=== PATIENT | female | born 1980 | race Caucasian/White ===

== ENCOUNTER 2019-05-28 20:29 | Observation (INO) | payer MEDICAID, SELFPAY ==
[2019-05-28] VITALS (15 sets, daily range): BP systolic 138–174; BP diastolic 96–119; PULSE 94–124; RESP 15–18; TEMP 36.7–37.2; O2SAT 95–99
--- NOTE | 2019-05-28 20:43 | W.ED.GENAD ---
Discharge Plan Disposition Patient Disposition: [facility] INPATIENT Condition: Improving Discharge Details Chief Complaint: ThroatFB Clinical Impression: Esophageal foreign body Attending Provider: Nicky Garcia Primary Care Provider: Guevara Wiley ED Provider: Vinod Valdivia Medical Decision Making 39-year-old female with frequent heartburn by subjective history, previous episodes of feeling meat gets stuck, no presentations to the hospital for same. Now feels prime rib got stuck this evening at her son's birthday green party. Unable to swallow her secretions. No chest pain or shortness of breath. She has otherwise been well. States that she needs to reestablish primary care. Consistent with meat impaction and patient trialed with effervescent bubbles, this was unsuccessful with persistent drooling and no antegrade passage of secretions. Discussed with Dr. Garcia and patient to be taken to OR. HPI General Mode of arrival: ambulatory. Date/Time Provider Initiated Documentation: 05/28/19 20:30. Limitations to Documentation: no limitations. Information obtained by: patient. History of Present Illness 39 year old F presents to the emergency department with the chief complaint of Foreign body in throat, described as moderate, Quality is described as dull and constant, and is localized to the mouth. Patient reports no radiation. Patient started experiencing this hour(s) and it has been constant. No relieving factors improve symptom(s), No exacerbating factors reported . Patient did receive the following treatments prior to arrival, none Related Data Home Medications Medication Instructions Recorded Confirmed levalbuterol tartrate [Xopenex HFA] 15 gm INHALATION PRN PRN 10/11/12 05/28/19 esomeprazole magnesium [Nexium 40 mg PO DAILY #30 each 05/28/19 Packet] mometasone-formoterol [Dulera] 2 puff IH Q12H #13 gm 05/28/19 Previous Rx's Medication Instructions Recorded esomeprazole magnesium [Nexium 40 mg PO DAILY #30 each 05/28/19 Packet] mometasone-formoterol [Dulera] 2 puff IH Q12H #13 gm 05/28/19 Allergies Allergy/AdvReac Type Severity Reaction Status Date / Time No Known Allergies Allergy Unverified 05/28/19 20:37 General Stated Complaint: ThroatFB SAAD: 3 Review of Systems Narrative: 6 systems reviewed and otherwise negative [facility] Medical History (Updated 05/28/19 @ 22:18 by Nicky Garcia DO) Churg-Janna syndrome with lung involvement (Acute) Esophageal foreign body (Acute) GERD (gastroesophageal reflux disease) (Chronic) Social History Smoking/Tobacco Use Status: Never Alcohol Intake: current Drug use: Never Substance use type: does not use Do you feel safe at home: Yes Do you feel safe in your relationship?: Yes Exam Narrative Exam Narrative: GEN: awake, alert, oriented 3. Pleasant, well groomed, interactive. HEAD: Normocephalic, atraumatic ENT: Mucous membranes moist, oropharynx unremarkable, External ear exam unremarkable EYES: PERRL, EOMI NECK: Full ROM, no KOLBY, no menigismus CHEST/RESP: Nontender, clear to auscultation bilateral, no wheeze/rhonchi/rales CARDIOVASCULAR: RRR, no murmur, rub mayda. 2+ Rad pulse bilateral ABDOMEN: Soft, nontender, no mass. +Bowel sounds EXT: Full ROM, no edema, no rash Neuro: Grossly normal neurologic exam, conversant, interactive. Psych: Speech fluent, thoughts congruent, affect normal Course Vital Signs Vital signs: Vital Signs Temperature 36.7 C 05/28/19 20:33 Pulse 105 H 05/28/19 20:33 Respiratory Rate 16 05/28/19 20:33 Blood Pressure 164/114 H 05/28/19 20:33 Pulse Oximetry 96 05/28/19 20:33 Temperature 36.7 C 05/28/19 20:33 Temperature Source Skin 05/28/19 20:33 Pulse 105 H 05/28/19 20:33 Respiratory Rate 16 05/28/19 20:33 Respiratory Effort Non-Labored 05/28/19 20:40 Respiratory Pattern Normal 05/28/19 20:40 Blood Pressure 164/114 H 05/28/19 20:33 Pulse Oximetry 96 05/28/19 20:33 Pain Level 1 05/28/19 20:33
[2019-05-28] MEDS: Simethicone/Sod Bicarb/Cit Ac, 4 gram PACKET 1 PACKET PO (20:49)
--- NOTE | 2019-05-28 20:57 | W.PM.HP.N ---
Date of service: 05/28/19 Time of Service: 20:57 Assessment and Plan Assessment and plan (1) Esophageal foreign body: Status: Acute Assessment and plan: Informed consent is obtained for the procedural (explained in simple layman's terms that the pt and/or family could understand) explaining risks vs benefits and alternatives to the procedure and consequences if we do not do the procedure and need/rational for the procedure. Risks include but are not limited to: bleeding, infection, perforation of esophagus, stomach, colon, small intestines, bronchus or trachea, or PTX. This would necessitate emergency surgery to repair the damage w/ possible ostomy; and other associated complications w/ the required surgery. Also complications of anesthesia including aspiration, LA/CVA/. egd and foreign body removal consider gerd meds in future needs to f/u w/ pcp regarding resp issues. History of Present Illness Consults Consult date: 05/28/19 Narrative: Prime rib stuck in throat. cannot swallow her own secretions. Has of hx of GERD. not on medications for it. often feels like food is sticking, but has never had anything stuck yet. no prior head/neck sx. no airway distress. Hx of asthma problems- churg janna. has not has her meds for 6m. she has been on prednisone in the past- none for last 6m. Review of Systems All systems reviewed & are unremarkable except as noted in HPI and below PFSH Medical History (Updated 05/28/19 @ 20:59 by Nicky Garcia DO) Churg-Janna syndrome with lung involvement (Acute) Esophageal foreign body (Acute) Social History Smoking/Tobacco Use Status: Never Alcohol Intake: current Drug use: Never Substance use type: does not use Do you feel safe at home: Yes Do you feel safe in your relationship?: Yes Meds Home Medications and Allergies Home Medications Medication Instructions Recorded Confirmed Type levalbuterol tartrate [Xopenex Hfa] 15 gm INHALATION PRN PRN 10/11/12 05/28/19 History Allergies Allergy/AdvReac Type Severity Reaction Status Date / Time No Known Allergies Allergy Unverified 05/28/19 20:37 Exam Const General: cooperative, healthy appearing, comfortable, no acute distress, well developed and well groomed Nutritional Appearance: average body habitus and well nourished Orientation: alert, awake and oriented x3 [facility] Head: normal to inspection, normocephalic and atraumatic Ears: hearing grossly normal bilaterally and external ears normal General nose exam: external nose normal Face and sinus: normal facial exam and sinuses nontender Mouth: oral mucosae normal, lip normal, tongue normal and moist mucous membranes Teeth and gingiva: dentition normal Other: dentition- some chipped teeth. cannot swallow her own secretions. Eyes General: appearance normal, both eyes and all related structures Conjunctivae: conjunctivae normal Sclera: sclerae normal Pupils: PERRL Neck Neck: normal visual inspection and full ROM Chest Chest: normal inspection of the chest Resp Effort & Inspection: normal respiratory effort, able to speak in complete sentences, no cough, no nasal flaring, not tachypneic and no use of accessory muscles Auscultation: clear to auscultation bilaterally, no rales, no rhonchi and no wheezes Cardio Jugular venous pressure: no JVD Rate: regular rate Rhythm: regular rhythm GI Inspection: normal to inspection, no edema and non-distended Palpation: soft, no masses, nontender and No ascites Auscultation: normal bowel sounds Skin General skin exam: no rashes or lesions noted Trauma: no lacerations or abrasions Neuro General: alert, oriented x3, oriented, gait normal, moves all extremities, no focal motor deficits and CN's II-XI intact bilaterally Cognition: normal cognition Speech: speech normal Gait: normal gait Motor: muscle tone normal throughout Extrem General: normal to inspection, full ROM and no clubbing, cyanosis or edema Psych Appearance: grossly normal and well kempt Mental Status: mental status grossly normal Speech and Movement: speech and movement normal Affect: normal affect Results Last Vital Signs Temp 36.7 C 05/28/19 20:33 Pulse 105 H 05/28/19 20:33 Resp 16 05/28/19 20:33 BP 164/114 H 05/28/19 20:33 Pulse Ox 96 05/28/19 20:33
[2019-05-28] MEDS: Normal Saline Flush 10 ML SYR IVP ×2 (20:58→23:08)
[2019-05-28] MEDS: Lactated Ringers 1,000 ML 80 ML IV (22:07)
--- NOTE | 2019-05-28 22:11 | STOM_PTH ---
PATIENT: Aleyda Madera LOC: U#:[id number] AGE/SX: 39/F ROOM: 227 RE05/28/[address]: Nicky Garcia : 1980 BED: A DIS: 05/28/2019 SPEC #: [id number] RECD: 05/30/19 12:25 STATUS: VANNA REQ #: [id number] JCARLOS: 05/28/19 22:[address]: Nicky Garcia DEPT: Surgical Specimen RECD BY: Susu Aguayo ENTERED: 05/30/19 12:26 SP TYPE: STOMACH OTHR DR: Guevara Wiley Tissues: 1 - STOMACH BIOPSY 2 - ESOPHAGUS BIOPSY Procedures: GROSS AND MICRO LEVEL 4 Comments: [id number]
--- NOTE | 2019-05-28 22:17 | W.PM.DS.N ---
Date of service: 05/28/19 Time of Service: 22:17 DS: Diagnosis Discharge Diagnosis (1) Esophageal foreign body: Status: Acute (2) GERD (gastroesophageal reflux disease): Status: Chronic (3) Churg-Janna syndrome with lung involvement: Status: Acute Discharge Plan Disposition Patient Disposition: HOME Condition: Improving Discharge Details Chief Complaint: ThroatFB Reason For Visit: esophageal foreign body Attending Provider: Nicky Garcia Primary Care Provider: Guevara Wiley ED Provider: Vinod Valdivia Home Meds and New Rx's Prescriptions: New Nexium Packet [address] for susp in packet 40 mg PO DAILY Qty: 30 RF: 1 Dulera 100-5 mcg/actuation HFA aerosol inhaler 2 puff IH Q12H Qty: 13 RF: 1 Continued levalbuterol tartrate [Xopenex HFA] 1 PUFF HFA aerosol inhaler 15 gm Inhalation PRN PRN (Reason: Wheezing, Shortness Of Breath) RF: 0 Discharge Instructions Instructions: Gastroesophageal Reflux Disease (GEN), Diet for Stomach Ulcers and Gastritis (GEN) Additional Instructions: -liquid diet for 24 hrs -may have sore throat- use cepacol lozenges as needed -F/u w/ PCP!!!!! -you do have GERD- start on Nexium- Rx given. -Continue with lifestyle modifications: no alcohol, tobacco products, Aspirin or NSAID's (ibuprofen, Motrin, Naprosyn, aleve, etc), soda pop/any carbonated beverages, caffeine (including tea & chocolate). Try to limit: and acidic foods, (tomatoes, citrus, onions, peppermints). Do not lie down for 30 minutes after eating, and do not eat 2 hours prior to bedtime. Avoid wearing tight fitting clothing/ belts Activity:: no stenuous acitivty or heavy lifting for 24 hrs Diet:: liquids for 24 hrs DS: Summary Status at Discharge Functional status at discharge: independent ambulation Overall status at discharge: patient is back to baseline Mental Status: mental status grossly normal Speech and Movement: speech and movement normal Mood: congruent mood Affect: normal affect Exam Psych Mental Status: mental status grossly normal Speech and Movement: speech and movement normal Mood: congruent mood Affect: normal affect DS: Data Vitals/I&O Vitals and I&O: Vital Signs Temperature 36.7 C 05/28/19 20:33 Temperature Source Skin 05/28/19 20:33 Pulse 105 H 05/28/19 21:31 Respiratory Rate 16 05/28/19 20:33 Respiratory Effort Non-Labored 05/28/19 20:40 Respiratory Pattern Normal 05/28/19 20:40 Blood Pressure 145/103 H 05/28/19 21:31 Blood Pressure Mean 112 05/28/19 21:31 Pulse Oximetry 98 05/28/19 21:40 Pain Level 0 05/28/19 21:56 Intake & Output 05/27/19 05/28/19 05/28/19 23:59 11:59 23:59 Intake Total Balance Weight 74 kg Intake: IV [facility] Medical History (Updated 05/28/19 @ 22:18 by Nicky Garcia DO) Churg-Janna syndrome with lung involvement (Acute) Esophageal foreign body (Acute) GERD (gastroesophageal reflux disease) (Chronic) Social History Smoking/Tobacco Use Status: Never Alcohol Intake: current Drug use: Never Substance use type: does not use Do you feel safe at home: Yes Do you feel safe in your relationship?: Yes
--- NOTE | 2019-05-28 22:26 | ROE_ITS ---
Date of service: 05/28/19 Time of Service: 22:26 Operative Note Operative Note DATE OF PROCEDURE: 05/28/19 PRE-OP DIAGNOSIS: esophageal foreign body POST-OP DIAGNOSIS: other (GERD ) PROCEDURE: EGD and esophageal foreign body removal. Bx SURGEON: Nicky Garcia ANESTHESIA: GETA ESTIMATED BLOOD LOSS: 1 PATHOLOGY: other Patient was transported to: floor Patient's condition: stable Procedure Description: After informed consent was obtained the patient was take to the procedure room and placed in a supine position. Monitors were applied and a time out was done. The patients name, date of , procedure type, allergies to medications and metal in their body was reviewed. A bite block was placed and GETA was administered per the department of anesthesia. once sedated and comfortable the gastroscope was advanced through the oropharynx which was grossly normal into the esophagus. 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 The tissues were very friable and erthymatous- the whole length of the esophagus. The food bolus was at the LES- and was easily passed into the stomach. There was also some irritation in the stomach. The scope was retracted back into the stomach and biopsies were done to rule out H. pylori. Bx was also taken of the distal esophagus. All specimens are retrieved and no bleeding is noted. Complete EGD was not done because the patient had a stomach full of food. What I could see of the mucosa did seem to be a low grade gastritis. The scope was removed and the patient was woken up and taken back to [facility] in stable condition. Follow up: needs to see PCP regarding chronic pulm issues- Churg-Janna. rx was given for protonix and her shannan MDI I will send a letter w/ Bx results. recommend lifestyle changes Continue with lifestyle modifications: no alcohol, tobacco products, Aspirin or NSAID's (ibuprofen, Motrin, Naprosyn, aleve, etc), soda pop/any carbonated beverages, caffeine (including tea & chocolate), and acidic foods, (tomatoes, citrus, onions, peppermints) spicy or fried/fatty foods. Do not lie down for 30 minutes after eating, and do not eat 2 hours prior to bedtime. Avoid wearing tight fitting clothing/ belts
[2019-05-28] MEDS: Pantoprazole 40 MG VIAL IVP (23:08)
== END 2019-05-28 23:47 | disposition home or self-care (01) ==
LOC: ER 20:34 → DSU 21:50 → MS 22:46
PROVIDERS: Admitting Provider Surgery; Emergency Provider Emergency Medicine; PCP Specialist/Technologist Athletic Trainer; Visit Provider Surgery
PROC: 0DC68ZZ Extirpation of Matter from Stomach, Via Natural or Artificial Opening Endoscopic (ICD-10-PCS; CPT 43247; principal; 2019-05-28 21:45)
DX: T18.128A Food in esophagus causing other injury, initial encounter (principal); K22.2 Esophageal obstruction; K20.0 Eosinophilic esophagitis; M30.1 Polyarteritis with lung involvement [Churg-Strauss]
CPT/HCPCS: 43247; 43239; 88305; 99222; 99238; 99285; 99284

== ENCOUNTER 2019-07-12 12:32 | Outpatient (REF) | payer MEDICAID, SELFPAY ==
[2019-07-12 21:19] LABS: Abs Immature Grans 0.03 k/cumm (0.0-0.09); Absolute Basophil Count 0.03 k/cumm (0.0-0.2); Absolute Eosinophil Count 0.75 k/cumm (0.0-0.7); Absolute Lymphocyte Count 2.08 k/cumm (1.2-3.4); Absolute Monocyte Count 0.83 k/cumm (0.11-0.7); Absolute Neutrophil Count 5.79 k/cumm (1.2-6.7); Basophils % 0.3; Eosinophils % 7.9; HCT 41.3 % (36.0-46.0); HGB 13.6 g/dL (12.0-15.5); Immature Grans % 0.3 %; Lymphocytes % 21.9; Mean Corp. HGB Concentration 32.9 g/dL (32.0-36.0); Mean Corpuscular Hemoglobin 31.4 pg (27.0-33.0); Mean Corpuscular Volume 95.4 fL (80-95); Mean Platelet Volume 9.6 fL (8.0-11.0); Monocytes % 8.7; Neutrophils % 60.9; Platelet Count 280 x1000/uL (130-400); RBC 4.33 m/cumm (4.00-5.20); RBC Distribution Width 12.8 % (11.7-14.6); White Blood Cell Count 9.51 k/cumm (4.4-10.8)
[2019-07-12 21:39] LABS: ALT 22 U/L (14-59); AST 16 U/L (15-37); Albumin 3.9 g/dL (3.4-5.0); Alkaline Phosphatase 82 U/L (46-116); BUN 7 mg/dL (7-18); Bilirubin, Total 0.4 mg/dL (0.2-1.0); CREATININE 0.79 mg/dL (0.55-1.02); Calcium 9.7 mg/dL (8.5-10.1); Calculated LDL 147 mg/dL; Chloride 105 mmol/L (98-107); Cholesterol 250 mg/dL (<200); Glucose 91 mg/dL (74-106); HDL Cholesterol 38 mg/dL (40-60); Potassium 4.2 mmol/L (3.5-5.1); Sodium 142 mmol/L (136-145); TSH (W/Ref FT4) 1.59 uIU/mL (0.36-3.74); Triglyceride 328 mg/dL (<150)
[2019-07-12 21:58] LABS: C-Reactive Protein 0.14 mg/dL (0.0-0.3)
[2019-07-12 22:05] LABS: ESR 9 mm/hr (0-20)
== END 2019-07-12 12:52 ==
LOC: NCHCN 12:32
PROVIDERS: PCP Specialist/Technologist Athletic Trainer; Visit Provider Specialist/Technologist Athletic Trainer
DX: I10 Essential (primary) hypertension (principal); M30.1 Polyarteritis with lung involvement [Churg-Strauss]; J45.20 Mild intermittent asthma, uncomplicated
CPT/HCPCS: 80053; 80061; 85652; 84443; 85025; 86140

== ENCOUNTER 2020-01-12 10:19 | Outpatient (REF) | payer MEDICAID, SELFPAY ==
[2020-01-12 21:07] LABS: Abs Immature Grans 0.02 k/cumm (0.0-0.09); Absolute Basophil Count 0.03 k/cumm (0.0-0.2); Absolute Eosinophil Count 0.41 k/cumm (0.0-0.7); Absolute Lymphocyte Count 1.16 k/cumm (1.2-3.4); Absolute Monocyte Count 0.64 k/cumm (0.11-0.7); Absolute Neutrophil Count 5.17 k/cumm (1.2-6.7); Basophils % 0.4; Eosinophils % 5.5; HCT 41.9 % (36.0-46.0); HGB 14.3 g/dL (12.0-15.5); Immature Grans % 0.3 %; Lymphocytes % 15.6; Mean Corp. HGB Concentration 34.1 g/dL (32.0-36.0); Mean Corpuscular Hemoglobin 32.7 pg (27.0-33.0); Mean Corpuscular Volume 95.9 fL (80-95); Mean Platelet Volume 9.5 fL (8.0-11.0); Monocytes % 8.6; Neutrophils % 69.6; Platelet Count 271 x1000/uL (130-400); RBC 4.37 m/cumm (4.00-5.20); RBC Distribution Width 12.7 % (11.7-14.6); White Blood Cell Count 7.43 k/cumm (4.4-10.8)
== END 2020-01-12 10:39 ==
LOC: NCHCN 10:19
PROVIDERS: PCP Specialist/Technologist Athletic Trainer; Visit Provider Nurse Practitioner Family
DX: I10 Essential (primary) hypertension (principal); M30.1 Polyarteritis with lung involvement [Churg-Strauss]; K20.0 Eosinophilic esophagitis; J32.9 Chronic sinusitis, unspecified; J45.20 Mild intermittent asthma, uncomplicated
CPT/HCPCS: 85025

== ENCOUNTER 2020-02-22 20:15 | Outpatient (REF) | payer MEDICAID, SELFPAY ==
[2020-02-22 20:26] LABS: Abs Immature Grans 0.03 10^3/uL (0.0-0.06); Absolute Basophil Count 0.06 10^3/uL (0.0-0.2); Absolute Eosinophil Count 0.29 10^3/uL (0.0-0.7); Absolute Lymphocyte Count 1.45 10^3/uL (1.2-3.4); Absolute Neutrophil Count 6.04 10^3/uL (1.2-6.7); Basophils % 0.7; Eosinophils % 3.4; HCT 40.4 % (36.0-46.0); HGB 13.7 g/dL (11.2-15.7); Immature Grans % 0.4; Lymphocytes % 16.9; MCH 32.1 pg (27.0-33.0); MCHC 33.9 % (32.0-36.0); MCV 94.6 fL (80-95); MPV 9.7 fL (8.0-11.0); Monocytes % 8.2; Neutrophils % 70.4; Nucleated RBC 0 %; Platelet Count 222 10^3/uL (130-400); RBC 4.27 10^6/uL (3.93-5.22); RDW 11.9 % (11.7-14.6); RDW-SD 41.3 fL; WBC 8.57 10^3/uL (4.4-10.8)
== END 2020-02-22 20:35 ==
LOC: NCHCN 20:15
PROVIDERS: PCP Specialist/Technologist Athletic Trainer; Visit Provider Nurse Practitioner Family
DX: M30.1 Polyarteritis with lung involvement [Churg-Strauss] (principal)
CPT/HCPCS: 85025

== ENCOUNTER 2020-07-17 11:33 | Outpatient (REF) | payer MEDICAID, SELFPAY ==
[2020-07-17 13:43] LABS: Abs Immature Grans 0.02 10^3/uL (0.0-0.06); Absolute Basophil Count 0.06 10^3/uL (0.0-0.2); Absolute Eosinophil Count 0.29 10^3/uL (0.0-0.7); Absolute Lymphocyte Count 1.52 10^3/uL (1.2-3.4); Absolute Monocyte Count 0.58 10^3/uL (0.1-0.8); Absolute Neutrophil Count 4.76 10^3/uL (1.2-6.7); Basophils % 0.8; HCT 40.5 % (36.0-46.0); HGB 13.6 g/dL (11.2-15.7); Immature Grans % 0.3; MCH 31.7 pg (27.0-33.0); MCHC 33.6 % (32.0-36.0); MCV 94.4 fL (80-95); MPV 8.9 fL (8.0-11.0); Neutrophils % 65.9; Nucleated RBC 0 %; Platelet Count 272 10^3/uL (130-400); RBC 4.29 10^6/uL (3.93-5.22); RDW 11.9 % (11.7-14.6); RDW-SD 41.3 fL; WBC 7.23 10^3/uL (4.4-10.8)
[2020-07-17 14:19] LABS: ALT 30 U/L (14-59); AST 25 U/L (15-37); Albumin 4.1 g/dL (3.4-5.0); Alkaline Phosphatase 64 U/L (46-116); Anion Gap 8.9 mmol/L (3-11); BUN 7 mg/dL (7-18); Bilirubin, Total 0.5 mg/dL (0.2-1.0); CO2 27.1 mmol/L (21.0-32.0); Calcium 8.8 mg/dL (8.5-10.1); Chloride 104 mmol/L (98-107); Glucose 85 mg/dL (74-106); Magnesium 1.8 mg/dL (1.8-2.4); Potassium 3.9 mmol/L (3.5-5.1); Sodium 140 mmol/L (136-145); Total Protein 7.2 g/dL (6.4-8.2); Vitamin B12 579 pg/mL (193-986)
== END 2020-07-17 11:53 ==
LOC: NCHCN 11:33
PROVIDERS: PCP Specialist/Technologist Athletic Trainer; Visit Provider Nurse Practitioner Family
DX: I10 Essential (primary) hypertension (principal); E78.5 Hyperlipidemia, unspecified; M30.1 Polyarteritis with lung involvement [Churg-Strauss]; J45.20 Mild intermittent asthma, uncomplicated
CPT/HCPCS: 80053; 82607; 83735; 85025

== ENCOUNTER 2020-08-20 15:08 | Outpatient (REF) | payer MEDICAID, SELFPAY ==
[2020-08-20 13:18] LABS: HCT 40.8 % (36.0-46.0); MCH 32.3 pg (27.0-33.0); MCHC 34.3 % (32.0-36.0); MPV 8.8 fL (8.0-11.0); Platelet Count 219 10^3/uL (130-400); RBC 4.34 10^6/uL (3.93-5.22); RDW 12.3 % (11.7-14.6); RDW-SD 42.6 fL
== END 2020-08-20 15:09 | disposition home or self-care (01) ==
LOC: NCHCN 15:08
PROVIDERS: PCP Specialist/Technologist Athletic Trainer; Visit Provider Nurse Practitioner Family
DX: M30.1 Polyarteritis with lung involvement [Churg-Strauss] (principal); K20.0 Eosinophilic esophagitis
CPT/HCPCS: 85027

== ENCOUNTER 2021-01-05 22:17 | Emergency (ER) | payer MEDICAID, SELFPAY ==
[2021-01-05 22:23] VITALS: BP 172/104; PULSE 98; RESP 18; TEMP 36.2; O2SAT 100
--- NOTE | 2021-01-05 22:36 | ED.GENADUL_ITS ---
Discharge Plan Disposition Patient Disposition: HOME Condition: Stable Discharge Details Clinical Impression: Esophageal foreign body Primary Care Provider: Evy Escalona ED Provider: Susu Powell Home Meds and New Rx's Prescriptions: No Action levalbuterol tartrate [Xopenex HFA] 1 PUFF HFA aerosol inhaler 15 gm Inhalation PRN PRN (Reason: Wheezing, Shortness Of Breath) RF: 0 Dulera 100-5 mcg/actuation HFA aerosol inhaler 2 puff IH Q12H Qty: 13 RF: 1 lisinopril 10 mg tablet 10 mg PO DAILY AM RF: 0 Discharge Instructions Additional Instructions: Please follow-up with your primary care physician Return should you have new or worsening complaints BP recheck by pcp as it is elevated Discharge Data Discharge Date/Time-TO BE ENTERED AT DEPARTURE: 01/05/21 23:25 Medical Decision Making Patient reports symptomatic improvement She is maintaining secretions, she feels as though she passed the esophageal bolus She is able to tolerate fluids in the emergency room She is given a threshold to return with new or worsening complaints She is instructed to follow-up with her primary care physician and to prep her food safely It sounds like 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 HPI General Mode of arrival: ambulatory . Date/Time Provider Initiated Documentation: 01/05/21 22:36 . Limitations to Documentation: no limitations . Information obtained by: patient . HPI Narrative: This 40-year-old female with history of Churg-Janna syndrome and esophageal eosinophilia presents with report of foreign body sensation in throat. Patient reportedly had steak and she felt as though it was stuck. She was unable to swallow fluids. At time of my evaluation of patient she states that she is actually able to swallow water and she feels as though she is passed the foreign body. She denies any chest pain or shortness of breath. She denies any dizziness or weakness. She denies any additional complaints at this time. Denies chance of . Otherwise feeling improved at this time. States this is happened several times in the past, last time unfortunately she needed to have endoscopy. Related Data Home Medications Medication Instructions Recorded Confirmed levalbuterol tartrate [Xopenex HFA] 15 gm INHALATION PRN PRN 10/11/12 01/05/21 mometasone-formoterol [Dulera] 2 puff IH Q12H #13 gm 05/28/19 01/05/21 lisinopril 10 mg PO DAILY AM 01/05/21 01/05/21 Previous Rx's Medication Instructions Recorded mometasone-formoterol [Dulera] 2 puff IH Q12H #13 gm 05/28/19 Allergies Allergy/AdvReac Type Severity Reaction Status Date / Time No Known Allergies Allergy Unverified 01/05/21 22:25 General Stated Complaint: ThroatFB SAAD: 2 Review of Systems All systems reviewed & are unremarkable except as noted in HPI and below PFSH Medical History (Updated 01/05/21 @ 22:37 by BETY Skelton) Churg-Janna syndrome with lung involvement Esophageal foreign body GERD (gastroesophageal reflux disease) Surgical History (Updated 06/07/19 @ 08:42 by Madai Ackerman RN) History of esophagogastroduodenoscopy (EGD) (~04/2019) Social History Smoking/Tobacco Use Status: Never Smoking risk assessment performed?: Yes Alcohol Intake: current Drug use: Never Substance use type: does not use Do you feel safe at home: Yes Do you feel safe in your relationship?: Yes Exam Const General: cooperative and no acute distress HENMT Other: Uvula midline no fb maintaining secretions Chest Chest: normal inspection of the chest Resp Effort & Inspection: normal respiratory effort Auscultation: clear to auscultation bilaterally Cardio Rate: regular rate Neuro General: patient alert Course Vital Signs Vital signs: Vital Signs Temperature 36.2 C L 01/05/21 22:23 Pulse 98 H 01/05/21 22:23 Respiratory Rate 18 01/05/21 22:23 Blood Pressure 172/104 H 01/05/21 22:23 Pulse Oximetry 100 01/05/21 22:23 Temperature 36.2 C L 01/05/21 22:23 Temperature Source Temporal Artery Scan 01/05/21 22:23 Pulse 98 H 01/05/21 22:23 Respiratory Rate 18 01/05/21 22:23 Blood Pressure 172/104 H 01/05/21 22:23 Blood Pressure Position Sitting 01/05/21 22:23 Pulse Oximetry 100 01/05/21 22:23 Oxygen Delivery Method Room Air 01/05/21 22:23 Oxygen Flow Rate 0 01/05/21 22:23 Pain Level 0 01/05/21 22:23
== END 2021-01-05 23:25 | disposition home or self-care (01) ==
PROVIDERS: Emergency Provider Physician Assistant; PCP Nurse Practitioner Family
DX: T18.128A Food in esophagus causing other injury, initial encounter (principal); K22.2 Esophageal obstruction; K20.0 Eosinophilic esophagitis
CPT/HCPCS: 99282

== ENCOUNTER 2021-01-15 10:08 | Outpatient (REF) | payer MEDICAID, SELFPAY ==
[2021-01-15 14:28] LABS: Abs Immature Grans 0.03 10^3/uL (0.0-0.06); Absolute Basophil Count 0.08 10^3/uL (0.0-0.2); Absolute Lymphocyte Count 1.47 10^3/uL (1.2-3.4); Absolute Monocyte Count 0.75 10^3/uL (0.1-0.8); Absolute Neutrophil Count 3.41 10^3/uL (1.2-6.7); Basophils % 1.2; Eosinophils % 10.9; HCT 40.2 % (36.0-46.0); HGB 13.7 g/dL (11.2-15.7); Immature Grans % 0.5; Lymphocytes % 22.8; MCH 32.9 pg (27.0-33.0); MCHC 34.1 % (32.0-36.0); MCV 96.4 fL (80-95); MPV 9.3 fL (8.0-11.0); Monocytes % 11.6; Nucleated RBC 0 %; Platelet Count 244 10^3/uL (130-400); RBC 4.17 10^6/uL (3.93-5.22); RDW 11.9 % (11.7-14.6); RDW-SD 42.1 fL; WBC 6.44 10^3/uL (4.4-10.8)
== END 2021-01-15 10:09 | disposition home or self-care (01) ==
LOC: NCHCN 10:08
PROVIDERS: PCP Nurse Practitioner Family; Visit Provider Nurse Practitioner Family
DX: J45.20 Mild intermittent asthma, uncomplicated (principal); J32.9 Chronic sinusitis, unspecified; K20.0 Eosinophilic esophagitis; M30.1 Polyarteritis with lung involvement [Churg-Strauss]; I10 Essential (primary) hypertension; E78.5 Hyperlipidemia, unspecified
CPT/HCPCS: 85025

== ENCOUNTER 2021-02-18 10:04 | Outpatient (REF) | payer MEDICAID, SELFPAY ==
[2021-02-18 15:24] LABS: Abs Immature Grans 0.02 10^3/uL (0.0-0.06); Absolute Basophil Count 0.06 10^3/uL (0.0-0.2); Absolute Eosinophil Count 0.61 10^3/uL (0.0-0.7); Absolute Lymphocyte Count 1.99 10^3/uL (1.2-3.4); Absolute Monocyte Count 0.59 10^3/uL (0.1-0.8); Absolute Neutrophil Count 3.49 10^3/uL (1.2-6.7); Basophils % 0.9; HCT 40.2 % (36.0-46.0); HGB 13.5 g/dL (11.2-15.7); Immature Grans % 0.3; Lymphocytes % 29.4; MCH 32.3 pg (27.0-33.0); MCHC 33.6 % (32.0-36.0); MCV 96.2 fL (80-95); MPV 9.1 fL (8.0-11.0); Monocytes % 8.7; Neutrophils % 51.7; Nucleated RBC 0 %; Platelet Count 182 10^3/uL (130-400); RBC 4.18 10^6/uL (3.93-5.22); RDW 11.9 % (11.7-14.6); RDW-SD 41.5 fL; WBC 6.76 10^3/uL (4.4-10.8)
== END 2021-02-18 10:05 | disposition home or self-care (01) ==
LOC: NCHCN 10:04
PROVIDERS: PCP Nurse Practitioner Family; Visit Provider Nurse Practitioner Family
DX: M30.1 Polyarteritis with lung involvement [Churg-Strauss] (principal)
CPT/HCPCS: 85025

== ENCOUNTER 2021-03-20 09:48 | Outpatient (REF) | payer MEDICAID, SELFPAY ==
[2021-03-20 14:06] LABS: Abs Immature Grans 0.03 10^3/uL (0.0-0.06); Absolute Basophil Count 0.05 10^3/uL (0.0-0.2); Absolute Lymphocyte Count 1.67 10^3/uL (1.2-3.4); Absolute Monocyte Count 0.58 10^3/uL (0.1-0.8); Absolute Neutrophil Count 3.57 10^3/uL (1.2-6.7); Basophils % 0.8; Eosinophils % 6.3; HCT 39.6 % (36.0-46.0); HGB 13.3 g/dL (11.2-15.7); Immature Grans % 0.5; Lymphocytes % 26.5; MCH 32.4 pg (27.0-33.0); MCHC 33.6 % (32.0-36.0); MCV 96.6 fL (80-95); MPV 9.4 fL (8.0-11.0); Monocytes % 9.2; Neutrophils % 56.7; Nucleated RBC 0 %; Platelet Count 208 10^3/uL (130-400); RDW 11.9 % (11.7-14.6); RDW-SD 41.9 fL
== END 2021-03-20 09:49 | disposition home or self-care (01) ==
LOC: NCHCN 09:48
PROVIDERS: PCP Nurse Practitioner Family; Visit Provider Nurse Practitioner Family
DX: K20.0 Eosinophilic esophagitis (principal); M30.1 Polyarteritis with lung involvement [Churg-Strauss]
CPT/HCPCS: 85025

== ENCOUNTER 2021-04-18 15:04 | Outpatient (REF) | payer MEDICAID, SELFPAY ==
[2021-04-18 14:21] LABS: Abs Immature Grans 0.03 10^3/uL (0.0-0.06); Absolute Basophil Count 0.06 10^3/uL (0.0-0.2); Absolute Eosinophil Count 0.45 10^3/uL (0.0-0.7); Absolute Monocyte Count 0.57 10^3/uL (0.1-0.8); Absolute Neutrophil Count 2.92 10^3/uL (1.2-6.7); Basophils % 1.1; Eosinophils % 8.1; HCT 39.9 % (36.0-46.0); HGB 13.4 g/dL (11.2-15.7); Immature Grans % 0.5; Lymphocytes % 27.1; MCH 32.1 pg (27.0-33.0); MCHC 33.6 % (32.0-36.0); MCV 95.5 fL (80-95); MPV 9.5 fL (8.0-11.0); Monocytes % 10.3; Neutrophils % 52.9; Nucleated RBC 0 %; Platelet Count 209 10^3/uL (130-400); RBC 4.18 10^6/uL (3.93-5.22); RDW 12.1 % (11.7-14.6); RDW-SD 42.5 fL; WBC 5.53 10^3/uL (4.4-10.8)
== END 2021-04-18 15:05 | disposition home or self-care (01) ==
LOC: LBN 15:04
PROVIDERS: PCP Nurse Practitioner Family; Visit Provider Nurse Practitioner Family
DX: K20.0 Eosinophilic esophagitis (principal); M30.1 Polyarteritis with lung involvement [Churg-Strauss]
CPT/HCPCS: 85025

== ENCOUNTER 2021-06-11 02:30 | Outpatient (CLI) | payer MEDICAID, SELFPAY ==
[2021-06-11 09:00] VITALS: BP 164/105; PULSE 74; RESP 16; TEMP 37; O2SAT 99
[2021-06-11 09:05] VITALS: BP 165/106
[2021-06-11] MEDS: Normal Saline 500 ML 30 ML IV (09:30)
[2021-06-11 09:40] VITALS: BP 169/99; PULSE 72; RESP 16; TEMP 37.2; O2SAT 99
[2021-06-11] MEDS: Normal Saline Flush 10 ML SYR IVP (09:47)
[2021-06-11 09:55] VITALS: BP 161/107; PULSE 67; RESP 18; TEMP 36.7; O2SAT 99
[2021-06-11 10:35] VITALS: BP 146/94; PULSE 65; RESP 16; TEMP 36.6; O2SAT 99
[2021-06-11 11:00] VITALS: BP 158/100; PULSE 73; RESP 16; TEMP 36.7; O2SAT 99
== END 2021-06-11 02:31 | disposition home or self-care (01) ==
LOC: INF 02:30
PROVIDERS: PCP Nurse Practitioner Family; Visit Provider Family Medicine
DX: U07.1 COVID-19 (principal)
CPT/HCPCS: 96365

== ENCOUNTER 2021-08-26 09:09 | Outpatient (REF) | payer MEDICAID, SELFPAY ==
[2021-08-26 15:02] LABS: Abs Immature Grans 0.03 10^3/uL (0.0-0.06); Absolute Basophil Count 0.05 10^3/uL (0.0-0.2); Absolute Eosinophil Count 0.41 10^3/uL (0.0-0.7); Absolute Lymphocyte Count 1.49 10^3/uL (1.2-3.4); Absolute Monocyte Count 0.63 10^3/uL (0.1-0.8); Absolute Neutrophil Count 3.86 10^3/uL (1.2-6.7); Basophils % 0.8; Eosinophils % 6.3; HCT 40.9 % (36.0-46.0); HGB 13.6 g/dL (11.2-15.7); Immature Grans % 0.5; MCH 32.5 pg (27.0-33.0); MCHC 33.3 % (32.0-36.0); MCV 97.8 fL (80-95); MPV 9.1 fL (8.0-11.0); Monocytes % 9.7; Neutrophils % 59.7; Nucleated RBC 0 %; Platelet Count 258 10^3/uL (130-400); RBC 4.18 10^6/uL (3.93-5.22); RDW 12.4 % (11.7-14.6); RDW-SD 44.8 fL; WBC 6.47 10^3/uL (4.4-10.8)
[2021-08-26 16:02] LABS: Anion Gap 12.3 mmol/L (3-11); BUN 8 mg/dL (7-18); CO2 23.7 mmol/L (21.0-32.0); CREATININE 0.7 mg/dL (0.55-1.02); Calcium 8.6 mg/dL (8.5-10.1); Calculated LDL 136 mg/dL (<100); Chloride 103 mmol/L (98-107); Cholesterol 249 mg/dL (<200); Glucose 77 mg/dL (74-106); HDL Cholesterol 55 mg/dL (40-60); Magnesium 1.9 mg/dL (1.8-2.4); Potassium 3.9 mmol/L (3.5-5.1); Sodium 139 mmol/L (136-145); Triglyceride 290 mg/dL (<150); Vitamin B12 360 pg/mL (193-986)
== END 2021-08-26 09:10 | disposition home or self-care (01) ==
LOC: NCHCN 09:09
PROVIDERS: PCP Nurse Practitioner Family; Visit Provider Nurse Practitioner Family
DX: I10 Essential (primary) hypertension (principal); E78.5 Hyperlipidemia, unspecified; M30.1 Polyarteritis with lung involvement [Churg-Strauss]; J32.9 Chronic sinusitis, unspecified; K20.0 Eosinophilic esophagitis
CPT/HCPCS: 80048; 80061; 82607; 83735; 85025

== ENCOUNTER 2022-04-04 10:22 | Outpatient (REF) | payer MEDICAID, SELFPAY ==
--- NOTE | 2022-04-04 09:30 | PAPFT_PTH ---
PATIENT: Aleyda Madera LOC: [facility]#:[id number] AGE/SX: 42/F ROOM: RE04/04/[address]: Evy Escalona : 1980 BED: DIS: 04/04/2022 SPEC #: [id number] RECD: 04/04/22 17:25 STATUS: VANNA RELeni #: [id number] JCARLOS: 04/04/22 09:[address]: Evy Escalona DEPT: [facility] Cytology RECD BY: Susu Aguayo Tissues: 1 - CX/ENDOCX FOR PAP SMEARS Procedures: PAP THIN PREP/UVM Screening HPV DNA PROBE Comments: [id number]
--- OUTSIDE RECORDS SUMMARY | 2022-04-04 10:37 | XMS_ITS | Encounter Summary ---
:1980 Author Organization [facility] Address [address] [place] [address] Care Team Providers Name Role Phone Unavailable Primary Care Provider Unavailable Encounter Details Date Type Department Care Team Description 11/26/2010 Results Only [facility] Shaun Webber CNM Laboratory Services - [address] [place] [address] [address] [facility] [place] [address] [phone] Social History Tobacco Use Types Packs/Day Years Used Date Never Assessed Sex Assigned at Date Recorded Not on file documented as of this encounter Plan of Treatment Not on filedocumented as of this encounter Procedures Procedure Name Priority Date/Time Associated Diagnosis Comme nts PAP TEST- RESULT Routine 11/26/2010 0:00 EDT Resu lts for this ONLY procedure are i n the results section. documented in this encounter Results PAP TEST- RESULT ONLY (11/26/2010 0:00 EDT) Pathology Report: CYTOPATHOLOGY REPORT ? [facility] ? LAB Reports generated via electr Pictic interface contain original data; ? however they are lacking the format of the original report. ? Caution should be taken when reading/interpreting unformatted reports. ? Name: ? ALEYDA WOOD ? Accession #: ? [id number] ? : ? 1980 (Age: 30) ??F ?Collect Date: ? 11/26/2010 ? Location: ? [facility] ? Receive Date: ? 11/27/2010 ? Provider: ?ANEA LELON G CNM ? Copy to: ? Specimen/Source: ? Pap Test, Cervix/Endocervix, ThinPrep Imaging System ? with manual evaluation ? Last Menstrual Period: ? 08/2010 ? Menstrual/ Status: ? SPECIMEN ADEQUACY ? Satisfactory for Eval uation ? - transformation zone compon ent present ? - scant squamous epithelial component secondary to excessive blood ? GENERAL CATEGORIZATION ? Negative for Intraepi thelial Lesion or Malignancy ? Document reviewed and electr onically signed by: ? Shantal Arambula, CT(A SCP) ? Report Date: ??06/06/ 2011 11:49 ? End of Report ? Specimen Performing Organization Address City/State/ZIP Code Phon e Number [facility] [address] [place] [address] SERVICES [facility] [address] [place] [address] documented in this encounter Visit Diagnoses Not on filedocumented in this encounter
--- OUTSIDE RECORDS SUMMARY | 2022-04-04 10:37 | XMS_ITS | Encounter Summary ---
:1980 Author Organization [facility] Address [address] [place] [address] Care Team Providers Name Role Phone Guevara Wiley PA-C Primary Care Provider Encounter Details Date Type Department Care Team Description 12/31/2016 Results Only Imaging [facility]- Unknown, GANESH ProviderMD [phone] Social History Tobacco Use Types Packs/Day Years Used Date Never Assessed Sex Assigned at Date Recorded Not on file documented as of this encounter Plan of Treatment Pending Results Name Type Priority Associated Diagnoses Date/Ti me OUTSIDE IMAGES - CT NEURO Imaging 16:12 EDT documented as of this encounter Visit Diagnoses Not on filedocumented in this encounter Care Teams Cylinder Block Mechanic Relationship Specialty Start Date End Date Guevara Wiley PA-C PCP - General 10/13/16 documented as of this encounter
--- OUTSIDE RECORDS SUMMARY | 2022-04-04 10:37 | XMS_ITS | Encounter Summary ---
:1980 Author Organization [facility] Address [address] [place] [address] Care Team Providers Name Role Phone Guevara Wiley PA-C Primary Care Provider Reason for Visit Reason Onset Date Comments Appointment Related 06/07/2021 mAb Encounter Details Date Type Department Care Team Description 06/07/2021 Telephone [facility] - Viri Liao RN Appointment Related [facility] [place] [address] (mAb) [address] [place] [address] [place] [address] [phone] Social History Tobacco Use Types Packs/Day Years Used Date Never Assessed Sex Assigned at Date Recorded Not on file documented as of this encounter Miscellaneous Notes Telephone Encounter - Viri Liao RN - 06/10/2021 1501 EST Pt cancelled appt late Thursday afternoon elephone Encounter - iVri Liao RN - 06/07/2021 1635 EST Monoclonal antibody referral/medication order (Regen-COV) received from Evy Escalona NP on 06/07/21 Informed consent documented in referral. Onset of symptoms: 06/03/21 Positive test: 06/07/21 Discussed the following information with patient: ?? We are offering Regen-cov injections only. This consists of 4 shots of the medication into the fatty tissue in arms, abdomen or thighs. ?? There is a 1 hour observation period after the shots to monitor for side effects. Any reactions will be reported to the attending ER doctor. Directions: ??? MAb clinic is located in adjacent to the ER. Please park in the ER parking lot and follow the signs. ??? Please do not bring family/friends to the clinic unless a direct caregiver is needed. ??? There is no bathroom inside the clinic. There is a bryson-potty outside. We recommend you use thefacilities before arrival. ??? If you would prefer injections in thighs vs abdomen please wear shorts/skirt to the clinic as there is limited space for changing. ??? Please knock on the clinic door as it will be locked. The nurse will verify name and prior to entrance. ??? You will be brought straight into one of the negative pressure treatment rooms and assessed by the nurse. If you are too sick to receive treatment the nurse will refer you to the ER. ??? Plan to be at the clinic for 1.5-2 hours. Patient scheduled: 06/10/21 Med order faxed to pharmacy (pending) documented in this encounter Plan of Treatment Not on filedocumented as of this encounter Visit Diagnoses Not on filedocumented in this encounter Care Teams Stemhole Borer Relationship Specialty Start Date End Date Guevara Wiley PA-C PCP - General 10/13/16 documented as of this encounter
--- OUTSIDE RECORDS SUMMARY | 2022-04-04 10:37 | XMS_ITS | Encounter Summary ---
:1980 Author Organization [facility] Address [address] [place] [address] Care Team Providers Name Role Phone Unknown, Provider Primary Care Provider Reason for Referral Cardiology (Routine/Next Available) - Closed Specialty Diagnoses / Procedures Referred By Contact Refer red To Contact Diagnoses SOB (shortness of breath) HTN (hypertension) Churg-Janna syndrome (HCC-CMS) (HCC) Mandeep Patel, Procedures ECHOCARDIOGRAM [address] [place] [id number] Referral ID Status Reason Start Date Expiration Date Visits Requ ested Visits Authorized [id number] Closed 06/13/2013 1 1 Encounter Details Date Type Department Care Team Description 06/13/2013 Orders Only [facility] Mandeep Patel SOB (sh ortness of breath) (Primary Dx); Cardiology - Thelma Sheets MD HTN (hypertension); [address] [place] [address] Churg-Janna syndrome (CMS-HCC) [place], [place] [address] [facility] [address] [place] [address] Social History Tobacco Use Types Packs/Day Years Used Date Never Assessed Sex Assigned at Date Recorded Not on file documented as of this encounter Progress Notes Vanita Waggoner NP - 06/19/2013 1448 EST Quick Note: Normal, please contact the patient to tell her about the results. No changes in therapy are needed. documented in this encounter Plan of Treatment Not on filedocumented as of this encounter Procedures Procedure Name Priority Date/Time Associated Diagnosis Comme nts ECHOCARDIOGRAM Routine 06/13/2013 15:50 EST SOB (shortness of Results for this breath) procedure are in the HTN (hypertensio n) results section. Churg-Janna syndrome (CMS-HCC) documented in this encounter Results ECHOCARDIOGRAM (06/13/2013 15:50 EST) Specimen Narrative OP CARDIOLOGY - 06/13/2013 16:04 EST *Interpreting Group:* *[facility]* [address] [place] [address] *STUDY CONCLUSIONS* Summary: 1. Left ventricle: The cavity size was n ormal. Wall thickness was normal. ?? Systolic function was normal. The es timated ejection fraction was 60-65%. ?? Wall motion was normal; there were n o regional wall motion abnormalities. 2. Right ventricle: The cavity size was normal. Wall thickness was normal. ?? Systolic function was normal. 3. Pulmonary arteries: Pulmonary systoli c pressure was within the normal range, ?? in the range of 20mm Hg to 25mm Hg. *PATIENT PRESENTATION* Height: ? 160cm (63in ) S/D Pressure: 163 / 110 Weight: ? 68kg (149.7lb ) BSA: ?1.76m^2 Test start time: ??03:11 PM. Test stop time: ??03:28 PM. REFERRING ?Unknown, Doctor ATTENDING ?Mandeep Patel MD ORDERING ? Mandeep Patel MD PERFORMING ?? [facility], Op LIQUIFIED NATURAL GAS SPECIALIST ??Sabrina Lyons *PROCEDURE DATA* Procedure information: ??This study was interpreted by [facility] at [facility] . ??Study status: ??Routine. Transthoracic echocardiography. ??M-mode, complete 2D, complete spectral Doppler, and color Doppler. A Transthoracic Echocardiogram was performed. Scanning was performed from the parasternal, apical, subcostal, and suprasternal notch acoustic windows. Images were obtained using a [employer] [id number] 8 cardiac ultrasound machine. Image quality was adequate. ??Study comp letion: ??The patient tolerated the procedure well. There were no complicati ons. *INDICATIONS AND HISTORY* Indications: ?? Shortness of breath 786. 05. *CARDIAC ANATOMY* Left ventricle: ??The cavity size was no rmal. Wall thickness was normal. Systolic function was normal. The estimated eject ion fraction was 60-65%. Wall motion was normal; there were no regional wall catie on abnormalities. Aortic valve: ?? Trileaflet; normal thic kness leaflets. Mobility was not restricted. ??Doppler: ??Transvalvular v elocity was within the normal range. There was no stenosis. ??No regurgitation. Aorta: ??Aortic root: The aortic root wa s normal in size. Mitral valve: ?? Structurally normal omid ve. ?? Mobility was not restricted. Doppler: ??Transvalvular velocity was wi thin the normal range. There was no evidence for stenosis. ??Trivial regurgi tation. Left atrium: ??The atrium was normal in size. Right ventricle: ??The cavity size was n ormal. Wall thickness was normal. Systolic function was normal. Pulmonic valve: ?Doppler: ??Transval vular velocity was within the normal range. There was no evidence for stenosis. ??No regurgitation. Tricuspid valve: ?? Structurally normal valve. ?Doppler: ??Transvalvular velocity was within the normal range. Th ere was no evidence for stenosis. Trivial regurgitation. Pulmonary artery: ?? The main pulmonary artery was normal-sized. Pulmonary systolic pressure was within the normal range, in the range of 20mm Hg to 25mm Hg. Right atrium: ??The atrium was normal in size. Pericardium: ??There was no pericardial effusion. Systemic veins: Inferior vena cava: The vessel was dannie l in size. *MEASUREMENT TABLES* 2D measurements ? Normal Left ventricle Area, ED, A4C ? 21.6 cm^2 ?? 17.7-47.3 Area, ES, A4C ? 12.1 cm^2 ?? 7.9-31.5 Fractional area change, A4C ? 44 % ?--------- Volume, ED, MOD, 1-plane ?51 ml ? --------- Volume, ES, MOD, 1-plane ?21 ml ? --------- Ejection fraction, MOD, 1-plane ? 59 % ?--------- Stroke volume, MOD, 1-plane ? 30 ml ? --------- Volume index, ED, MOD, 1-plane ?29 ml/m^2 --------- Volume index, ES, MOD, 1-plane ?12 ml/m^2 --------- Stroke index, MOD, 1-plane ?17.1 ml/m^2 --------- Aorta Root diameter, ED ? 27 mm ? --------- Ascending aorta anterior-posterior diame ter, S ?26 mm ? --------- Left atrium Anterior-posterior dimension ?34 mm ? --------- Anterior-posterior dimension index ?1.94 cm/m^2 <2.2 Superior-inferior dimension, A4C ?34 mm ? 29-53 ?? M-mode measurements ? Normal Left ventricle LV internal dimension, ED ? 46 mm ? 37-56 LV internal dimension, ES ? 29 mm ? --------- Fractional shortening ? 37 % ?29-45 LV posterior wall, ED ? 10 mm ? 6-11 Septal/posterior wall ratio, ED ?0.9 ?--------- Relative wall thickness, ED ?0.4 ?<0.45 Volume, ED, Teichholz ? 97.3 ml ? --------- Volume, ES, Teichholz ? 32.2 ml ? --------- Ejection fraction, Teichholz ?66.9 % ?64-83 Volume index, ED, Teichholz ? 55 ml/m^2 --------- Volume index, ES, Teichholz ? 18 ml/m^2 --------- Wall mass ?148.1 g ?--------- Wall mass index ? 84.4 g/m^2 ??--------- Mass/height ? 0.93 g/cm ?? --------- Ventricular septum Septal thickness, ED ? 9 mm ? --------- ?? Doppler measurements ?Normal Left ventricle IVRT ?70 ms ? 60-100 Ea, lateral annulus, tissue Doppler ? 7.68 cm/s ?? --------- E/Ea, lateral annulus, tissue Doppler ? 10.7 ?--------- Mitral valve Peak E-wave velocity ?82.4 cm/s ?? --------- Peak A-wave velocity ?56.8 cm/s ?? --------- Deceleration time ?180 ms ? 150-230 Peak E/A ratio ? 1.5 ?--------- Legend: Mean values are shown as u=mean value. Asterisk (*) ahmadi values outside specif ied normal range. Electronically signed by Hugh Arias MD 06/13/2013 16:04 Procedure Note 06/13/2013 *Interpreting Group:* *[facility]* [address] [place] [address] *STUDY CONCLUSIONS* Summary: 1. Left ventricle: The cavity size was n ormal. Wall thickness was normal. Systolic function was normal. The estim ated ejection fraction was 60-65%. Wall motion was normal; there were no r egional wall motion abnormalities. 2. Right ventricle: The cavity size was normal. Wall thickness was normal. Systolic function was normal. 3. Pulmonary arteries: Pulmonary systoli c pressure was within the normal range, in the range of 20mm Hg to 25mm Hg. *PATIENT PRESENTATION* Height: 160cm (63in ) S/D Pressure: 163 / 110 Weight: 68kg (149.7lb ) BSA: 1.76m^2 Test start time: 03:11 PM. Test stop time: 03:28 PM. REFERRING Unknown, Doctor ATTENDING Mandeep Patel MD ORDERING Mandeep Patel MD PERFORMING [facility], Op LIQUIFIED NATURAL GAS SPECIALIST Sabrina Lyons *PROCEDURE DATA* Procedure information: This study was in terpreted by [facility] at [facility] . Study status: Routine. Transthoracic echocardiography. M-mode, complete 2D, c omplete spectral Doppler, and color Doppler. A Transthoracic Echocardiogram was performed. Scanning was performed from the parasternal, apical, subcostal, and suprasternal notch acoustic windows. Images were obtained using a [employer] [id number] 8 cardiac ultrasound machine. Image quality was adequate. Study comple tion: The patient tolerated the procedure well. There were no complicati ons. *INDICATIONS AND HISTORY* Indications: Shortness of breath 786.05. *CARDIAC ANATOMY* Left ventricle: The cavity size was norm al. Wall thickness was normal. Systolic function was normal. The estimated eject ion fraction was 60-65%. Wall motion was normal; there were no regional wall catie on abnormalities. Aortic valve: Trileaflet; normal thickne ss leaflets. Mobility was not restricted. Doppler: Transvalvular veloc ity was within the normal range. There was no stenosis. No regurgitation. Aorta: Aortic root: The aortic root was normal in size. Mitral valve: Structurally normal valve. Mobility was not restricted. Doppler: Transvalvular velocity was with in the normal range. There was no evidence for stenosis. Trivial regurgita tion. Left atrium: The atrium was normal in si ze. Right ventricle: The cavity size was nor mal. Wall thickness was normal. Systolic function was normal. Pulmonic valve: Doppler: Transvalvular v elocity was within the normal range. There was no evidence for stenosis. No r egurgitation. Tricuspid valve: Structurally normal omid ve. Doppler: Transvalvular velocity was within the normal range. Th ere was no evidence for stenosis. Trivial regurgitation. Pulmonary artery: The main pulmonary art karely was normal-sized. Pulmonary systolic pressure was within the normal range, in the range of 20mm Hg to 25mm Hg. Right atrium: The atrium was normal in s ize. Pericardium: There was no pericardial ef fusion. Systemic veins: Inferior vena cava: The vessel was dannie l in size. *MEASUREMENT TABLES* 2D measurements Normal Left ventricle Area, ED, A4C 21.6 cm^2 17.7-47.3 Area, ES, A4C 12.1 cm^2 7.9-31.5 Fractional area change, A4C 44 % ------- -- Volume, ED, MOD, 1-plane 51 ml --------- Volume, ES, MOD, 1-plane 21 ml --------- Ejection fraction, MOD, 1-plane 59 % --- ------ Stroke volume, MOD, 1-plane 30 ml ------ --- Volume index, ED, MOD, 1-plane 29 ml/m^2 --------- Volume index, ES, MOD, 1-plane 12 ml/m^2 --------- Stroke index, MOD, 1-plane 17.1 ml/m^2 - -------- Aorta Root diameter, ED 27 mm --------- Ascending aorta anterior-posterior diame ter, S 26 mm --------- Left atrium Anterior-posterior dimension 34 mm ----- ---- Anterior-posterior dimension index 1.94 cm/m^2 <2.2 Superior-inferior dimension, A4C 34 mm 2 9-53 M-mode measurements Normal Left ventricle LV internal dimension, ED 46 mm 37-56 LV internal dimension, ES 29 mm -------- - Fractional shortening 37 % 29-45 LV posterior wall, ED 10 mm 6-11 Septal/posterior wall ratio, ED 0.9 ---- ----- Relative wall thickness, ED 0.4 <0.45 Volume, ED, Teichholz 97.3 ml --------- Volume, ES, Teichholz 32.2 ml --------- Ejection fraction, Teichholz 66.9 % 64-8 3 Volume index, ED, Teichholz 55 ml/m^2 -- ------- Volume index, ES, Teichholz 18 ml/m^2 -- ------- Wall mass 148.1 g --------- Wall mass index 84.4 g/m^2 --------- Mass/height 0.93 g/cm --------- Ventricular septum Septal thickness, ED 9 mm --------- Doppler measurements Normal Left ventricle IVRT 70 ms 60-100 Ea, lateral annulus, tissue Doppler 7.68 cm/s --------- E/Ea, lateral annulus, tissue Doppler 10 .7 --------- Mitral valve Peak E-wave velocity 82.4 cm/s --------- Peak A-wave velocity 56.8 cm/s --------- Deceleration time 180 ms 150-230 Peak E/A ratio 1.5 --------- Legend: Mean values are shown as u=mean value. Asterisk (*) ahmadi values outside specif ied normal range. Electronically signed by Hugh Arias MD 06/13/2013 16:04 Performing Organization Address City/State/ZIP Code Phon e Number OP CARDIOLOGY documented in this encounter Visit Diagnoses Diagnosis SOB (shortness of breath) - Primary Shortness of breath HTN (hypertension) Unspecified essential hypertension Churg-Janna syndrome (HCC-CMS) (HCC) Vinny's granulomatosis documented in this encounter Care Teams Top Collar Baster Relationship Specialty Start Date End Date Unknown, Provider, PCP - General 06/13/13 10/12/16 documented as of this encounter
--- OUTSIDE RECORDS SUMMARY | 2022-04-04 10:37 | XMS_ITS | Clinical Summary ---
:1980 Author Organization [facility] Address [address] [place] [address] Care Team Providers Name Role Phone Guevara Wiley PA-C Primary Care Provider [phone] Social History Tobacco Use Types Packs/Day Years Used Date Never Assessed Sex Assigned at Date Recorded Not on file Plan of Treatment Health Maintenance Due Date Last Done Comments Hepatitis C Screen 1980 COVID-19 Vaccine (1) 1984 Insurance Payer Benefit Plan Subscriber ID Effective Phone Address Typ e / Group Dates MEDICAID ACO MEDICAID ACO [id number] 2019-Pres [phone] [address] Medicaid [place] [address] [facility] [id number] Aleyda Madera Personal/Family Self 1980 [address] [facility] (Home) [place] [address] Aleyda Madera Personal/Family Self 1980 [address] [facility] (Home) [place] [address] Aleyda Madera Personal/Family Self 1980 [address] [facility] (Home) [place] [address] Aleyda Madera Personal/Family Self 1980 18 [address] [facility] ([place] [place] [address] Advance Directives For more information, please contact: [phone] Documents on File Type Date Recorded Patient Stereoptician Explanati on Advance Directives and Living Will Power of Asphalt Spreader Operator Care Teams Wallpaperer Helper Relationship Specialty Start Date End Date Guevara Wiley PA-C PCP - General 10/13/16
--- OUTSIDE RECORDS SUMMARY | 2022-04-04 10:37 | XMS_ITS | Encounter Summary ---
:1980 Author Organization [facility] Address [address] [place] [address] Care Team Providers Name Role Phone Guevara Wiley PA-C Primary Care Provider [phone] Encounter Details Date Type Department Care Team Description 10/13/2016 Results Only [facility] Unknown, Provider, (Wo rk) Social History Tobacco Use Types Packs/Day Years Used Date Never Assessed Sex Assigned at Date Recorded Not on file documented as of this encounter Plan of Treatment Not on filedocumented as of this encounter Procedures Procedure Name Priority Date/Time Associated Diagnosis Comme nts CREATININE, ISTAT Routine 10/13/2016 8:26 EDT Res ults for this procedure are i n the results section. documented in this encounter Results CREATININE, ISTAT (10/13/2016 8:26 EDT) Creatinine, i-STAT 0.8 0.6 - 1.3 [facility] mg/dl LABORATORY hat copyist ID [id number]: [facility] Test performed by LABORATORY Radiology SERVICES Imaging. Specimen Blood Performing Organization Address City/State/ZIP Code Phon e Number [facility] [address] [place] [address] SERVICES documented in this encounter Visit Diagnoses Not on filedocumented in this encounter Care Teams Assistant Administrator Relationship Specialty Start Date End Date Guevara Wiley PA-C PCP - General 10/13/16 documented as of this encounter
--- OUTSIDE RECORDS SUMMARY | 2022-04-04 10:37 | XMS_ITS | Encounter Summary ---
:1980 Author Organization [facility] Address [address] [place] [address] Care Team Providers Name Role Phone Guevara Wiley PA-C Primary Care Provider [phone] Encounter Details Date Type Department Care Team Description 10/13/2016 Results Only Imaging [facility]- Joo Luna, GANESH WHITEHEAD [phone] [address] [place] [address] (Wo rk) Social History Tobacco Use Types Packs/Day Years Used Date Never Assessed Sex Assigned at Date Recorded Not on file documented as of this encounter Plan of Treatment Not on filedocumented as of this encounter Procedures Procedure Name Priority Date/Time Associated Diagnosis Comme nts MR CARDIAC W/WO 10/13/2016 9:19 EDT Resul ts for this CONTRAST procedure are i n the results section. documented in this encounter Results MR CARDIAC FUNCTION (10/13/2016 9:19 EDT) Anatomical Region Laterality Modality Other Specimen Narrative [facility] - 10/13/2016 9:56 EDT MR CARDIAC FUNCTION ??10/13/2016 9:19 AM Signs and symptoms: ??Churg Janna synd teja. Myocarditis. (M30.1/I51.4) Technique: Multiplanar steady state free precession sequences of the heart were performed. ??Additionally, following IV gadolinium administration, rest perfusion and multi-planar delayed inversion recovery sequences of the heart were performed. Comparison: None. Findings: LEFT VENTRICLE: Left global ventricular systolic functio n is normal with an LVEF of 53%. ?? Regional Wall Motion: Base: normal. Mid heart: normal. [place]: normal. The left ventricular chamber is normal w ith an end diastolic volume of 98.2 mL and an end systolic volume of 46.4 mL. ??The left ventricular end diastolic diameter is 4. 4 cm. ??The myocardial wall thickness is normal. RIGHT VENTRICLE: Right ventricular systolic function, reg ional wall motion, chamber size and wall thickness are normal. ATRIA: The left atrium measures 3.5. The right atrium is normal. VALVES: The aortic, pulmonic, tricuspid and mitr al valve are normal PERICARDIUM: The pericardium is normal. AORTA: The ascending aorta measures 2.8 cm at t he sinuses of Valsalva, normal. PERFUSION: The rest perfusion sequences following I V gadolinium administration are normal. VIABILITY: The delayed inversion recovery sequences show no evidence of delayed hyperenhancement of the myocardium to le ggest inflammatory infiltration or scarring. ANCILLARY FINDINGS: None Impression: Normal cardiac MRI. ??No evidence of hyp erenhancement of the myocardium to suggest inflammatory infil tration or scarring. I have personally reviewed the images an d the above interpretation and agree with the findings. Procedure Note Alexis Camejo MD - 10/13/2016 MR CARDIAC FUNCTION 10/13/2016 9:19 AM Signs and symptoms: Churg Janna syndro me. Myocarditis. (M30.1/I51.4) Technique: Multiplanar steady state free precession sequences of the heart were performed. Additionally, following IV ga dolinium administration, rest perfusion and multi-planar delayed inversion recovery sequences of the heart were performed. Comparison: None. Findings: LEFT VENTRICLE: Left global ventricular systolic functio n is normal with an LVEF of 53%. Regional Wall Motion: Base: normal. Mid heart: normal. [place]: normal. The left ventricular chamber is normal w ith an end diastolic volume of 98.2 mL and an end systolic volume of 46.4 mL. The left ventricular end diastolic diameter is 4. 4 cm. The myocardial wall thickness is normal. RIGHT VENTRICLE: Right ventricular systolic function, reg ional wall motion, chamber size and wall thickness are normal. ATRIA: The left atrium measures 3.5. The right atrium is normal. VALVES: The aortic, pulmonic, tricuspid and mitr al valve are normal PERICARDIUM: The pericardium is normal. AORTA: The ascending aorta measures 2.8 cm at t he sinuses of Valsalva, normal. PERFUSION: The rest perfusion sequences following I V gadolinium administration are normal. VIABILITY: The delayed inversion recovery sequences show no evidence of delayed hyperenhancement of the myocardium to le ggest inflammatory infiltration or scarring. ANCILLARY FINDINGS: None Impression: Normal cardiac MRI. No evidence of hyper enhancement of the myocardium to suggest inflammatory infil tration or scarring. I have personally reviewed the images an d the above interpretation and agree with the findings. Performing Organization Address City/State/ZIP Code Phon e Number [facility] documented in this encounter Visit Diagnoses Not on filedocumented in this encounter Care Teams Clinical Nursing Manager Relationship Specialty Start Date End Date Guevara Wiley PA-C PCP - General 10/13/16 documented as of this encounter
--- OUTSIDE RECORDS SUMMARY | 2022-04-04 10:37 | XMS_ITS | Encounter Summary ---
:1980 Author Organization [facility] Address [address] [place] [address] Care Team Providers Name Role Phone Guevara Wiley PA-C Primary Care Provider [phone] Encounter Details Date Type Department Care Team Description 10/13/2016 Hospital Encounter [facility] - Nikki Luna rk, 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
--- OUTSIDE RECORDS SUMMARY | 2022-04-04 10:38 | XMS_ITS | Encounter Summary ---
:1980 Author Organization [facility] Address [address] [place] [address] Care Team Providers Name Role Phone Unavailable Primary Care Provider Unavailable Encounter Details Date Type Department Care Team Description 07/11/2003 Results Only [facility] - Lucila Perea od, MILLWRIGHT APPRENTICE [address] [place] [phone] (Wo rk) Social History Tobacco Use Types Packs/Day Years Used Date Never Assessed Sex Assigned at Date Recorded Not on file documented as of this encounter Plan of Treatment Not on filedocumented as of this encounter Procedures Procedure Name Priority Date/Time Associated Diagnosis Comme nts CYTOPATHOLOGY Routine 07/11/2003 0:00 EST Results for this procedure are i n the results section . documented in this encounter Results CYTOPATHOLOGY (07/11/2003 0:00 EST) Pathology Report: CYTOPATHOLOGY REPORT [facility] Reports generated via electronic interface contain kyle ginal data; however they are lacking the format of the original re port. Caution should be taken when reading/interpreting unfo rmatted reports. Name: ? ALEYDA WOOD ? Accession #: ? [id number] : ? 1980 (Age: 23) ??F ?Collect Date: ? 01/1 08/2003 Location: ? [facility] ? Receive Date : ? 07/12/2003 Provider: ?LUCILA WOOD MILLWRIGHT APPRENTICE Copy to: ? Specimen/Source: ?ThinPrep Pap Test, Cervix/ Endocervix Last Menstrual Period: ? 07/04/03 Hormonal/Contraceptive Status: ? Oral contraceptives Previous Gynecologic Pathology: ? ASC-US: MEDICAL ACCOUNTANT LUDA ASC-US: HPV neg 07/22/02 Other: ? Additional clinical information: Paps & 07/06/01 neg. HPVA - HPV testing requested if ASC-US on the current ThinPrep Pap test. ? SPECIMEN ADEQUACY ? Satisfactory for Evaluation - transformation zone component present GENERAL CATEGORIZATION ? Negative for Intraepithelial Lesion or Malignan cy ? Document reviewed and electronically signed by: ? MITCHELL Bui(ASCP) ? Report Date: ??07/18/2003 09:43 End of Report Specimen Performing Organization Address City/State/ZIP Code Phon e Number [facility] [address] [place] [address] SERVICES [facility] [address] [place] [address] documented in this encounter Visit Diagnoses Not on filedocumented in this encounter
--- OUTSIDE RECORDS SUMMARY | 2022-04-04 10:38 | XMS_ITS | Encounter Summary ---
:1980 Author Organization [facility] Address [address] [place] [address] Care Team Providers Name Role Phone Unavailable Primary Care Provider Unavailable Encounter Details Date Type Department Care Team Description 07/12/[address] Results [address] [facility] - Shaun Cedillo CNM conversion [address] [place] [address] [place] [address] [phone] Social History Tobacco Use Types Packs/Day Years Used Date Never Assessed Sex Assigned at Date Recorded Not on file documented as of this encounter Plan of Treatment Not on filedocumented as of this encounter Procedures Procedure Name Priority Date/Time Associated Diagnosis Comme nts CYTOPATHOLOGY Routine 07/12/2004 0:00 EST Results for this procedure are i n the results section . documented in this encounter Results CYTOPATHOLOGY (07/12/2004 0:00 EST) Pathology Report: CYTOPATHOLOGY REPORT [facility] Reports generated via electronic interface contain kyle ginal data; however they are lacking the format of the original re port. Caution should be taken when reading/interpreting unfo rmatted reports. Name: ? ALEYDA WOOD ? Accession #: ? [id number] : ? 1980 (Age: 24) ??F ?Collect Date: ? 06/29 Location: ? [facility] ? Receive Date : ? 07/16/2004 Provider: ?IWONAMalachi JOSEPH CNM Copy to: ? Specimen/Source: ?ThinPrep Pap Test, Cervix/ Endocervix Last Menstrual Period: ? 07/04/03 Menstrual/ Status: ? Post Previous Gynecologic Pathology: ? ASC-US: ASC-US: HPV negative 07/22/02 Other: ? Additional clinical information: Negative paps , 07/06/01 & 07/11/03 HPVA - HPV testing requested if ASC-US on the current ThinPrep Pap test. ? SPECIMEN ADEQUACY ? Unsatisfactory for Evaluation, - insufficient numbers of squamous epith elial cells (less than 10% of expected cellularity) - sample preparation compromised by excessive blood GENERAL CATEGORIZATION ? Specimen processed and examined, but unsatisfac tory for evaluation of epithelial abnormality. Recommend repeat Pap test or further follow up, as cli nically indicated. ? Document reviewed and electronically signed by: ? MITCHELL Murdock(ASCP) ? Report Date: ??07/17/2004 16:02 End of Report Specimen Performing Organization Address City/State/ZIP Code Phon e Number [facility] [address] [place] [address] SERVICES [facility] [address] [place] [address] documented in this encounter Visit Diagnoses Not on filedocumented in this encounter
--- OUTSIDE RECORDS SUMMARY | 2022-04-04 10:38 | XMS_ITS | Encounter Summary ---
:1980 Author Organization [facility] Address [address] [place] [address] Care Team Providers Name Role Phone Unavailable Primary Care Provider Unavailable Encounter Details Date Type Department Care Team Description 07/08/2002 Results Only [facility] - Lucila Perea od, CLAIMS CONFIGURATION ANALYST [address] [place] [phone] (Wo rk) Social History Tobacco Use Types Packs/Day Years Used Date Never Assessed Sex Assigned at Date Recorded Not on file documented as of this encounter Plan of Treatment Not on filedocumented as of this encounter Procedures Procedure Name Priority Date/Time Associated Diagnosis Comme nts CYTOPATHOLOGY Routine 07/08/2002 0:00 EST Results for this procedure are i n the results section . documented in this encounter Results CYTOPATHOLOGY (07/08/2002 0:00 EST) Pathology Report: CYTOPATHOLOGY REPORT [facility] Reports generated via electronic interface contain kyle ginal data; however they are lacking the format of the original re port. Caution should be taken when reading/interpreting unfo rmatted reports. Name: ? ALEYDA WOOD ? Accession #: ? [id number] : ? 1980 (Age: 22) ??F ?Collect Date: ? 01/1 Location: ? [facility] ? Receive Date : ? 07/11/2002 Provider: ?LUCILA WOOD CLAIMS CONFIGURATION ANALYST Copy to: ? Specimen/Source: ?ThinPrep Pap Test, Cervix/ Endocervix Last Menstrual Period: ? 07/05/02 Hormonal/Contraceptive Status: ? Oral contraceptives Previous Gynecologic Pathology: ? ASC-US: FLORIST DESIGNER LUDA ASC-US: favor cell epithelial cell abnormality Other: ? Additional clinical information: wnl. 07/06/01 n egative. HPVA - HPV testing requested if ASC-US [...] reviewed and electronically signed by: ? MITCHELL Davis(ASCP) ? Report Date: ??07/12/2002 14:23 End of Report Specimen Performing Organization Address City/State/ZIP Code Phon e Number [facility] [address] [place] [address] SERVICES [facility] [address] [place] [address] documented in this encounter Visit Diagnoses Not on filedocumented in this encounter
--- OUTSIDE RECORDS SUMMARY | 2022-04-04 10:38 | XMS_ITS | Encounter Summary ---
:1980 Author Organization [facility] Address [address] [place] [address] Care Team Providers Name Role Phone Unavailable Primary Care Provider Unavailable Encounter Details Date Type Department Care Team Description 08/23/1999 Results Only [facility] - Lucila Perea od, CONVEYOR OPERATOR [address] [place] [phone] (Wo rk) Social History Tobacco Use Types Packs/Day Years Used Date Never Assessed Sex Assigned at Date Recorded Not on file documented as of this encounter Plan of Treatment Not on filedocumented as of this encounter Procedures Procedure Name Priority Date/Time Associated Diagnosis Comme [facility] CYTOPATHOLOGY Routine 08/23/1999 11:33 EST Result s for this procedure are i n the results section . documented in this encounter Results CYTOPATHOLOGY (08/23/1999 11:33 EST) Pathology Report: CYTOPATHOLOGY REPORT [facility] Reports generated via electronic interface contain kyle ginal data; however they are lacking the format of the original re port. Caution should be taken when reading/interpreting unfo rmatted reports. Name: ? ALEYDA WOOD ? Accession #: ? [id number] : ? 1980 (Age: 19) ??F ?Collect Date: ? 07/31 Location: ?Receive Date: ? 08/23/1999 Provider: ?LUCILA WOOD CONVEYOR OPERATOR Copy to: ?LUCILA WOOD CONVEYOR OPERATOR ? Specimen/Source: ?Applications Processor ThinPrep Last Menstrual Period: ? GYNECOLOGIC ??CYTOPATHOLOG Y ??REPORT Name: ALEYDA XIE ?[facility] : 1980 ?? 19Y F ?Client ID: [id number] SS#: ? Clinician: NINA GOODE, LUCILA ?? Location: [facility] ??Copy to: ?? Specimen: ?Applications Processor ThinPrep ? Source: Cervix/Endocervix ?Collected: 08/21/99 ? Received: 08/23/1999 ?LMP: ?Hormone Therapy: No ? : Yes ?Radiation Therapy: No ?? Post : No ?Chemotherapy: No ?IUD: No ? Prev Abnormal Pap: No ?? Clinical Hx: First pap ?(Blank bull indicate information not provided on requisition) SPECIMEN ADEQUACY: ? Satisfactory But Limited By ? Obscuring Inflammation ?? GENERAL CATEGORIZATION: ? EPITHELIAL CELL ABNORMALITY ?? DESCRIPTIVE DIAGNOSIS: ? Atypical Squamous Cells Of Undetermined Signifi cance (ASCUS), ? Cannot Rule Out Squamous Intraepithelial Lesion (LUDA) ? Parakeratosis - Surface Reaction ? Reviewed And Electronically Signed By: ? Elo Colmenares MD., PhD. ? Report Date : ?? 09/02/1999 [employer] Archived Tests - Final Diagnosis Text Field: Clinical History : ;First pap ? Document reviewed and electronically signed by: ? Conversion ? Report Date: ??09/02/1999 00:00 End of Report Specimen Performing Organization Address City/State/ZIP Code Phon e Number [facility] [address] [place] [phone] SERVICES [facility] [address] [place] [address] documented in this encounter Visit Diagnoses Not on filedocumented in this encounter
--- OUTSIDE RECORDS SUMMARY | 2022-04-04 10:38 | XMS_ITS | Encounter Summary ---
:1980 Author Organization [facility] Address [address] [place] [address] Care Team Providers Name Role Phone Unavailable Primary Care Provider Unavailable Encounter Details Date Type Department Care Team Description 07/06/2001 Results Only [facility] - Lucila Perea od, MANAGER SMALL BUSINESS [address] [place] [phone] (Wo rk) Social History Tobacco Use Types Packs/Day Years Used Date Never Assessed Sex Assigned at Date Recorded Not on file documented as of this encounter Plan of Treatment Not on filedocumented as of this encounter Procedures Procedure Name Priority Date/Time Associated Diagnosis Comme nts CYTOPATHOLOGY Routine 07/06/2001 0:00 EST Results for this procedure are i n the results section . documented in this encounter Results CYTOPATHOLOGY (07/06/2001 0:00 EST) Pathology Report: CYTOPATHOLOGY REPORT [facility] Reports generated via electronic interface contain kyle ginal data; however they are lacking the format of the original re port. Caution should be taken when reading/interpreting unfo rmatted reports. Name: ? ALEYDA WOOD ? Accession #: ? [id number] : ? 1980 (Age: 21) ??F ?Collect Date: ? 01/0 01/2002 Location: ? [facility] ? Receive Date : ? 07/07/2001 Provider: ?LUCILA WOOD MANAGER SMALL BUSINESS Copy to: ? Specimen/Source: ?ThinPrep Pap Test, Cervix/ Endocervix Last Menstrual Period: ? Hormonal/Contraceptive Status: ? Depo-Provera Previous Gynecologic Pathology: ? ASC-US: PERFORMANCE TESTER LUDA ASC-US: Favor Reactive epithelial cell abnormality 0 Other: ? Additional clinical information: Pap of WNL ? SPECIMEN ADEQUACY ? Satisfactory for Evaluation - transformation zone component present GENERAL CATEGORIZATION ? Negative for Intraepithelial Lesion or Malignan cy ? Document reviewed and electronically signed by: ? MITCHELL Wu(ASCP) ? Report Date: ??07/08/2001 13:25 End of Report Specimen Performing Organization Address City/State/ZIP Code Phon e Number [facility] [address] [place] [address] SERVICES [facility] [address] [place] [address] documented in this encounter Visit Diagnoses Not on filedocumented in this encounter
--- OUTSIDE RECORDS SUMMARY | 2022-04-04 10:38 | XMS_ITS | Encounter Summary ---
:1980 Author Organization [facility] Address [address] [place] [address] Care Team Providers Name Role Phone Unavailable Primary Care Provider Unavailable Encounter Details Date Type Department Care Team Description 10/29/2010 Results Only [facility] Shaun Webber CNM Laboratory Services - [address] [place] [address] [address] [facility] [place] [address] [phone] Social History Tobacco Use Types Packs/Day Years Used Date Never Assessed Sex Assigned at Date Recorded Not on file documented as of this encounter Plan of Treatment Not on filedocumented as of this encounter Procedures Procedure Name Priority Date/Time Associated Diagnosis Comme nts PAP TEST- RESULT Routine 10/29/2010 0:00 EDT Resu lts for this ONLY procedure are i n the results section. documented in this encounter Results PAP TEST- RESULT ONLY (10/29/2010 0:00 EDT) Pathology Report: CYTOPATHOLOGY REPORT ? [facility] ? LAB Reports generated via electr Circle[employer] interface contain original data; ? however they are lacking the format of the original report. ? Caution should be taken when reading/interpreting unformatted reports. ? Name: ? ALEYDA WOOD ? Accession #: ? [id number] ? : ? 1980 (Age: 30) ??F ?Collect Date: ? 10/29/2010 ? Location: ? [facility] ? Receive Date: ? 10/30/2010 ? Provider: ?ANEA LELON G CNM ? Copy to: ? Specimen/Source: ? Pap Test, Cervix/Endocervix, ThinPrep Imaging System ? with manual evaluation ? Last Menstrual Period: ? Menstrual/ Status: ? Previous Gynecologic Patholo gy: ? ASC-US: 2/00, 2003 ? Yes: 2/00 ADJUNCT FACULTY LUDA ? Other: ? Additional clinical informat ion: 2003 HPV neagative, 2004, 2005, 2006 paps ? negative ? SPECIMEN ADEQUACY ? Unsatisfactory for Ev aluation, ? - insufficient numbers of sq uamous epithelial cells (less than 10% of expected ?? cellularity) ? - sample preparation comprom ised by excessive blood ? GENERAL CATEGORIZATION ? Specimen processed an d examined, but unsatisfactory for evaluation of ? epithelial abnormality. ? Recommend repeat Pap test or further follow up, as clinically indicated. ? Document reviewed and electr onically signed by: ? Lynan James, CT(ASCP) ? Report Date: ??05/06/ 2011 16:24 ? End of Report ? Specimen Performing Organization Address City/State/ZIP Code Phon e Number [facility] [address] [place] [address] SERVICES [facility] [address] [place] [address] documented in this encounter Visit Diagnoses Not on filedocumented in this encounter
--- OUTSIDE RECORDS SUMMARY | 2022-04-04 10:38 | XMS_ITS | Encounter Summary ---
:1980 Author Organization [facility] Address [address] [place] [address] Care Team Providers Name Role Phone Unavailable Primary Care Provider Unavailable Encounter Details Date Type Department Care Team Description 11/29/1999 Results Only [facility] - Lexy Redd CNM [facility] [address] [place] [phone] Social History Tobacco Use Types Packs/Day Years Used Date Never Assessed Sex Assigned at Date Recorded Not on file documented as of this encounter Plan of Treatment Not on filedocumented as of this encounter Procedures Procedure Name Priority Date/Time Associated Diagnosis Comme nts CYTOPATHOLOGY Routine 11/29/1999 0:00 EDT Results for this procedure are i n the results section . documented in this encounter Results CYTOPATHOLOGY (11/29/1999 0:00 EDT) Pathology Report: CYTOPATHOLOGY REPORT [facility] Reports generated via electronic interface contain kyle ginal data; however they are lacking the format of the original re port. Caution should be taken when reading/interpreting unfo rmatted reports. Name: ? ALEYDA WOOD ? Accession #: ? [id number] : ? 1980 (Age: 19) ??F ?Collect Date: ? 07/1999 Location: ? [facility] ? Receive Date : ? 12/02/1999 Provider: ?LEXY SCHAEFFER [facility] Copy to: ? Specimen/Source: ?ThinPrep Pap Test, Cervix/ Endocervix Last Menstrual Period: ? Menstrual/ Status: ? Post Previous Gynecologic Pathology: ? ASC-US: MOBILE EQUIPMENT MECHANIC LUDA 2 Parakeratosis ? SPECIMEN ADEQUACY ? Satisfactory for evaluation but limited by scan t squamous epithelial component secondary to excessive blood. GENERAL CATEGORIZATION ? Epithelial Cell Abnormality DESCRIPTIVE DIAGNOSIS ? Atypical squamous cells of undetermined signifi cance, favor reactive process. Predominance of coccobacilli present consistent with s hift in vaginal yovana. RECOMMENDATION ? Recommend repeat Pap test in 3-6 months or further follow up, as clinically indicated. ? Document reviewed and electronically signed by: ? Lianna Golden MD PhD ? Report Date: ??12/09/1999 15:37 End of Report Specimen Performing Organization Address City/State/ZIP Code Phon e Number [facility] [address] [place] [address] SERVICES [facility] [address] [place] [address] documented in this encounter Visit Diagnoses Not on filedocumented in this encounter
--- OUTSIDE RECORDS SUMMARY | 2022-04-04 10:38 | XMS_ITS | Encounter Summary ---
:1980 Author Organization [facility] Address [address] [place] [address] Care Team Providers Name Role Phone Unavailable Primary Care Provider Unavailable Encounter Details Date Type Department Care Team Description 07/22/2002 Results Only [facility] - Lucila Perea od, PRODUCT SAFETY COORDINATOR conversion [address] [place] [phone] (Wo rk) Social History Tobacco Use Types Packs/Day Years Used Date Never Assessed Sex Assigned at Date Recorded Not on file documented as of this encounter Plan of Treatment Not on filedocumented as of this encounter Procedures Procedure Name Priority Date/Time Associated Comments Diagnosis HPV DETECTION, HIGH Routine 07/22/2002 14:20 Resu lts for this RISK TYPES EST procedure are i n the results section. CYTOPATHOLOGY Routine 07/22/2002 0:00 Results for this EST procedure are i n the results section. documented in this encounter Results HUMAN PAPILLOMA VIRUS DNA TEST (07/22/2002 14:20 EST) Specimen Description Cervix, ThinPrep [facility] Result Negative for HPV [facility] types 16, 18, 31, 33, 35, 39, 45, 51, 52, 56, 58, 59, and 68. Report Status Final [facility] [id number] Specimen Performing Organization Address City/State/ZIP Code Phon e Number [facility] [address] [place] [address] SERVICES [facility] [address] [place] [address] CYTOPATHOLOGY (07/22/2002 0:00 EST) Pathology Report: CYTOPATHOLOGY REPORT [facility] Reports generated via electronic interface contain kyle ginal data; however they are lacking the format of the original re port. Caution should be taken when reading/interpreting unfo rmatted reports. Name: ? ALEYDA WOOD ? Accession #: ? [id number] : ? 1980 (Age: 22) ??F ?Collect Date: ? 06/30 Location: ? [facility] ? Receive Date : ? 07/26/2002 Provider: ?LUCILA WODO PRODUCT SAFETY COORDINATOR Copy to: ? Specimen/Source: ?ThinPrep Pap Test, Cervix/ Endocervix Last Menstrual Period: ? 07/05/02 Hormonal/Contraceptive Status: ? Oral contraceptives Previous Gynecologic Pathology: ? ASC-US: STITCH BURNISHER LUDA Other: ? Additional clinical information: Paps of , Negative HPVA - HPV testing requested if ASC-US on the current ThinPrep Pap test. ? SPECIMEN ADEQUACY ? Satisfactory for Evaluation - transformation zone component present GENERAL CATEGORIZATION ? Epithelial Cell Abnormality INTERPRETATION ? Squamous Cell Abnormality - Atypical squamous c ells, undetermined significance. Fungal organisms present morphologically consistent wi th Penelope species. EDUCATIONAL NOTES/RECOMMENDATIONS ? [facility] recommends radhao wing the 2001 Consensus Guidelines for the Management of Women with Cervical Cytological Abnormalities (JAM Malachi,2002;287:2120-9). Management algorithms have b een distributed by [facility] [facility] and are available online at www.ASCCP.org. ? Document reviewed and electronically signed by: ? Judith Betancourt MD ? Report Date: ??07/28/2002 17:07 End of Report Specimen Performing Organization Address City/State/ZIP Code Phon e Number [facility] [address] [place] [address] SERVICES [facility] [address] [place] [address] documented in this encounter Visit Diagnoses Not on filedocumented in this encounter
--- OUTSIDE RECORDS SUMMARY | 2022-04-04 10:38 | XMS_ITS | Encounter Summary ---
:1980 Author Organization [facility] Address [address] [place] [address] Care Team Providers Name Role Phone Unavailable Primary Care Provider Unavailable Encounter Details Date Type Department Care Team Description 11/07/2005 Results Only [facility] - Lucila Perea od, OFFICE MANAGER EXECUTIVE ASSISTANT [address] [place] [phone] (Wo rk) Social History Tobacco Use Types Packs/Day Years Used Date Never Assessed Sex Assigned at Date Recorded Not on file documented as of this encounter Plan of Treatment Not on filedocumented as of this encounter Procedures Procedure Name Priority Date/Time Associated Diagnosis Comme nts CYTOPATHOLOGY Routine 11/07/2005 0:00 EDT Results for this procedure are i n the results section . documented in this encounter Results CYTOPATHOLOGY (11/07/2005 0:00 EDT) Pathology Report: CYTOPATHOLOGY REPORT [facility] Reports generated via electronic interface contain kyle ginal data; however they are lacking the format of the original re port. Caution should be taken when reading/interpreting unfo rmatted reports. Name: ? ALYEDA WOOD ? Accession #: ? [id number] : ? 1980 (Age: 25) ??F ?Collect Date: ? 10/27 Location: ? [facility] ? Receive Date : ? 11/10/2005 Provider: ?LUCILA WOOD OFFICE MANAGER EXECUTIVE ASSISTANT Copy to: ? Specimen/Source: ? ThinPrep Pap Test, Cervix/Endocervix, processed on Neon Mobile ThinPrep Imaging System, with manual evaluation Last Menstrual Period: ? 2 months ago Other: ? HPVA - HPV testing requested if ASC-US on the current ThinPrep Pap test. ? SPECIMEN ADEQUACY ? Satisfactory for Evaluation - transformation zone component present GENERAL CATEGORIZATION ? Negative for Intraepithelial Lesion or Malignan cy ? Document reviewed and electronically signed by: ? MITCHELL Wu(ASCP) ? Report Date: ??11/11/2005 13:14 End of Report Specimen Performing Organization Address City/State/ZIP Code Phon e Number [facility] [address] [place] [phone] SERVICES [facility] [address] [place] [address] documented in this encounter Visit Diagnoses Not on filedocumented in this encounter
[2022-04-04 15:36] LABS: Abs Immature Grans 0.04 10^3/uL (0.0-0.06); Absolute Basophil Count 0.04 10^3/uL (0.0-0.2); Absolute Eosinophil Count 0.11 10^3/uL (0.0-0.7); Absolute Lymphocyte Count 1.86 10^3/uL (1.2-3.4); Absolute Monocyte Count 0.82 10^3/uL (0.1-0.8); Absolute Neutrophil Count 6.03 10^3/uL (1.2-6.7); Basophils % 0.4; Eosinophils % 1.2; HCT 37.9 % (36.0-46.0); Immature Grans % 0.4; Lymphocytes % 20.9; MCH 33.3 pg (27.0-33.0); MCHC 34.3 % (32.0-36.0); MCV 97 fL (80-95); MPV 9.6 fL (8.0-11.0); Monocytes % 9.2; Neutrophils % 67.9; Platelet Count 219 10^3/uL (130-400); RDW 12.8 % (11.7-14.6); RDW-SD 45.6 fL
== END 2022-04-04 10:23 | disposition home or self-care (01) ==
LOC: NCHCN 10:22
PROVIDERS: PCP Nurse Practitioner Family; Visit Provider Nurse Practitioner Family
DX: Z12.4 Encounter for screening for malignant neoplasm of cervix (principal); Z11.51 Encounter for screening for human papillomavirus (HPV); I10 Essential (primary) hypertension; E78.5 Hyperlipidemia, unspecified
CPT/HCPCS: 88142; 85025; 87624

== ENCOUNTER 2022-05-05 18:13 | Outpatient (REF) | payer MEDICAID, SELFPAY ==
[2022-05-05 18:27] LABS: HCT 40.4 % (36.0-46.0); HGB 13.5 g/dL (11.2-15.7); MCH 31.7 pg (27.0-33.0); MCHC 33.4 % (32.0-36.0); MCV 95 fL (80-95); MPV 9.5 fL (8.0-11.0); Platelet Count 241 10^3/uL (130-400); RBC 4.26 10^6/uL (3.93-5.22); RDW 11.9 % (11.7-14.6); RDW-SD 41.7 fL; WBC 7.81 10^3/uL (4.4-10.8)
[2022-05-06 08:21] LABS: Abs Immature Grans 0.03 10^3/uL (0.0-0.06); Absolute Basophil Count 0.06 10^3/uL (0.0-0.2); Absolute Eosinophil Count 0.23 10^3/uL (0.0-0.7); Absolute Lymphocyte Count 1.57 10^3/uL (1.2-3.4); Absolute Monocyte Count 0.57 10^3/uL (0.1-0.8); Absolute Neutrophil Count 5.31 10^3/uL (1.2-6.7); Basophils % 0.8; Immature Grans % 0.4; Lymphocytes % 20.2; Monocytes % 7.3; Neutrophils % 68.3
== END 2022-05-05 18:14 | disposition home or self-care (01) ==
LOC: NCHCN 18:13
PROVIDERS: PCP Nurse Practitioner Family; Visit Provider Nurse Practitioner Family
DX: M30.1 Polyarteritis with lung involvement [Churg-Strauss] (principal)
CPT/HCPCS: 85027; 85007

== ENCOUNTER → 2022-05-07 11:12 | Outpatient (CLI) | payer MEDICAID, SELFPAY ==
--- NOTE | 2022-05-07 | DI.RAD_ITS ---
Exam(s) XR CHEST 2V PA LATERAL EXAM: XR CHEST 2V PA LATERAL CLINICAL HISTORY: CHEST WALL PAIN, R07.89, RADIATING FROM RT SHOULDER TECHNIQUE: 2D digital imaging was performed of the chest. Two images were obtained. PA and lateral views were obtained. COMPARISON: CR CHEST 2 VIEWS PA,LAT from 06/16/2013 FINDINGS: MEDIASTINUM: Normal. HEART: Normal. PULMONARY VASCULATURE: Normal. LUNGS: Clear. PLEURAL SPACE: No pleural effusion or pneumothorax. BONE:Within normal limits for the patient's age. OTHER FINDINGS:Normal. IMPRESSION: No acute pulmonary findings. DATA REPOSITORY: RADIATION DOSE DELIVERED:
--- NOTE | 2022-05-07 | DI.RAD_ITS ---
Exam(s) XR SHOULDER RT COMPLETE 2+V EXAM: XR SHOULDER RT COMPLETE 2+V CLINICAL HISTORY: RT SHOULDER PAIN, M25.511, POSTERIOR ASPECT. TECHNIQUE: 2D digital imaging was performed of the right shoulder. Five images were obtained. AP, Grashey, Y-view and axillary views were obtained. COMPARISON: No exams were available for comparison FINDINGS: BONES: No acute fracture is present. No bony destructive lesion is seen. JOINTS: No dislocation present. SOFT TISSUE: Normal. IMPRESSION: Unremarkable radiographs of the right shoulder. DATA REPOSITORY: RADIATION DOSE DELIVERED:
== END ==
PROVIDERS: PCP Nurse Practitioner Family; Visit Provider Physician Assistant Medical
DX: M25.511 Pain in right shoulder (principal); R07.89 Other chest pain
CPT/HCPCS: 71046; 73030

== ENCOUNTER 2022-05-10 08:14 | Outpatient (REF) | payer MEDICAID, SELFPAY ==
--- NOTE | 2022-05-10 08:15 | RT.EKG_ITS ---
APPROVED REPORT Exam: Resting ECG Reason for Exam: shortness of breath Patient Location: E HR:99 bpm ECG Measurements Heart Rate 99 AXIS MO 141 P 95 QRSd 92 QRS 37 QT 339 T 27 QTc 435 Conclusion Sinus rhythm...normal P axis, V-rate 60- 99
[2022-05-10 08:17] VITALS: BP 138/91; PULSE 101; RESP 16; TEMP 37.1; O2SAT 99
--- NOTE | 2022-05-10 08:35 | ED.GENADUL_ITS ---
Discharge Plan Disposition Patient Disposition: HOME Condition: Stable Discharge Details Clinical Impression: Bronchopneumonia, Churg-Janna syndrome with lung involvement Primary Care Provider: Evy Escalona ED Provider: Vlad Troncoso Home Meds and New Rx's Prescriptions: New prednisone 20 mg tablet 40 mg PO DAILY Qty: 8 0RF doxycycline hyclate 100 mg capsule 100 mg PO BID Qty: 10 0RF Continued levalbuterol tartrate [Xopenex HFA] 1 PUFF HFA aerosol inhaler 15 gm Inhalation PRN PRN (Reason: Wheezing, Shortness Of Breath) Dulera 100-5 mcg/actuation HFA aerosol inhaler 2 puff IH Q12H Qty: 13 1RF lisinopril 10 mg tablet 10 mg PO DAILY AM Label Comments: TAKE 1 TABLET BY MOUTH DAILY Discharge Instructions Instructions: Acute Bronchitis (ED) Additional Instructions: You may start the steroid tomorrow morning and take daily every morning for the next 4 days. Please take your antibiotic as prescribed and until fully completed. If you develop any new or significant worsening of symptoms feel free to return the emergency department for reassessment otherwise follow-up with your primary care provider especially if you are not improving in the next week. Referrals: Evy Escalona [Primary Care Provider] - 1 week Medical Decision Making Patient presenting to the emergency department for chief complaint of cough, shortness of breath, some right-sided chest and shoulder pain. Patient reports that shoulder has been sore for a while seem to be musculoskeletal but then 4 days ago she began having a cough, shortness of breath, and some right-sided chest pain. Patient denies any injury or trauma. Patient does have Churg- Janna syndrome with respiratory involvement and does state that she has not been taking her prednisone or her inhaler as she had been doing well. Patient denies fever chills but does state some slight nasal congestion that just started this morning. Physical exam shows mild tachycardia, mild but diffuse wheezing with prolonged expiration, posterior pharynx and tonsillary erythema otherwise unremarkable exam. Given patient's vasculitis diagnosis and history we will perform labs and CTA of the chest to rule out potential thrombosis. Pending results will give fluids, steroids, and DuoNeb. Please see physician interpretation for full interpretation of EKG but on my review patient has a heart rate of 99, and is in normal sinus rhythm with no obvious acute ischemic findings. Reviewed patient's labs and she is negative for influenza and COVID, patient is not , CBC is overall unremarkable, CMP shows a very subtle decrease in calcium and magnesium, negative troponin, all other labs within normal range. CT imaging shows bronchitis with left lower lobe bronchopneumonia. We will plan on placing patient on antibiotics and steroid burst. Patient will be encouraged to continue to use home inhaler and to follow-up with primary care provider as needed for reassessment if not improving. Imaging Data Radiologic Study: Imaging: CT Scan Radiologist's impression: FINDINGS: Pulmonary arteries: No filling defects in the central, lobar, or proximal segmental pulmonary arteries to suggest pulmonary emboli. Normal caliber main pulmonary artery. Aorta: Normal in caliber. Lungs: Mural thickening in the central main airways, most apparent in the lower lobes, is consistent with bronchitis. There is a small endoluminal opacity in a right basilar segmental bronchus, most likely mucus plugging or retained secretions. There are small patchy and nodular ground-glass alveolar opacities in the left lower lobe, most compatible with an infectious or inflammatory pneumonitis. There is no consolidation or mass. Pleural spaces: No pleural effusion or pneumothorax. Heart: Heart size is normal. No coronary artery calcifications. No pericardial effusion. Lymph nodes: Unremarkable. No pathologically enlarged mediastinal, hilar, or axillary lymph nodes. Bones/joints: No suspicious osseous lesions. Soft tissues: Unremarkable. Other findings: None. IMPRESSION: 1. No pulmonary emboli. 2. Findings most compatible with bronchitis with left lower lobe bronchopneumonia. Lab Data Lab results reviewed: Yes I reviewed the patient's lab results. HPI General Mode of arrival: ambulatory . Date/Time Provider Initiated Documentation: 05/10/22 08:17 . Limitations to Documentation: no limitations . Information obtained by: patient and RN notes reviewed . History of Present Illness 42 year old F presents to the emergency department with the chief c omplaint of Cough, shortness of breath, right-sided chest pain, described as moderate, with intensity rated at 5. Quality is described as aching, and is localized to the chest and right. Patient extremity. Patient started experiencing this day(s) (4) and it has been constant. No relieving factors improve symptom(s), No exacerbating factors reported . Patient did receive the following treatments prior to arrival, none Related Data Home Medications Medication Instructions Recorded Confirmed levalbuterol tartrate 45 15 gm inhalation PRN PRN Wheezing, 10/11/12 05/10/22 mcg/actuation aerosol inhaler Shortness Of Breath (Xopenex HFA) mometasone-formoterol HFA 100 2 puff inhalation Q12H #13 grams 05/28/19 05/10/22 mcg-5 mcg/actuation aerosol inhaler (Dulera) lisinopril 10 mg tablet 10 mg PO DAILY AM 01/05/21 05/10/22 doxycycline hyclate 100 mg capsule 100 mg PO BID #10 caps 05/10/22 prednisone 20 mg tablet 40 mg PO DAILY #8 tabs 05/10/22 Previous Rx's Medication Instructions Recorded mometasone-formoterol HFA 100 2 puff inhalation Q12H #13 grams 05/28/19 mcg-5 mcg/actuation aerosol inhaler (Dulera) doxycycline hyclate 100 mg capsule 100 mg PO BID #10 caps 05/10/22 prednisone 20 mg tablet 40 mg PO DAILY #8 tabs 05/10/22 Allergies Allergy/AdvReac Type Severity Reaction Status Date / Time No Known Allergies Allergy Unverified 05/10/22 08:22 General Stated Complaint: RespSymp SAAD: 3 Review of Systems Constitutional Constitutional: Denies chills, Denies fever(s), Denies headache(s), Reports malaise and Denies poor appetite ENT Ears, Nose, Mouth, and Throat: Denies otalgia, Denies headache(s), Reports nasal congestion, Denies nasal discharge, Denies neck pain, Reports sore throat and Denies throat swelling Cardiovascular Cardiovascular: Reports chest pain, Denies syncope, Denies leg edema, Denies lightheadedness and Reports dyspnea Respiratory Respiratory: Reports as per HPI, Reports cough, Reports dyspnea and Reports wheezing Gastrointestinal Gastrointestinal: Denies abdominal pain, Denies diarrhea, Denies nausea and Denies vomiting Musculoskeletal Musculoskeletal: Reports arthralgias and Denies neck pain Integumentary/Breasts Skin/Breast: Denies rash Neurologic Neurologic: Denies syncope and Denies headache(s) Allergic/Immunologic Allergic/Immunologic: Denies throat swelling and Reports wheezing PFSH All Active Problems (Updated 05/10/22 @ 10:15 by Vlda Troncoso NP) Bronchopneumonia (Acute) Churg-Janna syndrome with lung involvement (Acute) GERD (gastroesophageal reflux disease) (Chronic) Esophageal foreign body (Acute) Surgical History History of esophagogastroduodenoscopy (EGD) (~04/2019) Social History Smoking/Tobacco Use Status: Current-Occasional Tobacco Type: smokeless tobacco Smoking risk assessment performed?: Yes Alcohol Intake: current Alcohol Intake frequency: a few times a week Drug use: Never Substance use type: does not use Do you feel safe at home: Yes Do you feel safe in your relationship?: Yes Exam Const General: cooperative, comfortable and no acute distress Orientation: alert and awake HENMT Head: normal to inspection, normocephalic and atraumatic Ears: hearing grossly normal bilaterally and TM's normal bilaterally General nose exam: external nose normal Face and sinus: no erythema Mouth: oral mucosae normal, no drooling, no muffled voice and no trismus Throat: abnormal tonsil bilaterally erythema and posterior oropharynx abnormal erythema Neck Neck: normal visual inspection, full ROM, no lymphadenopathy, no meningeal signs, trachea midline and supple Resp Effort & Inspection: normal respiratory effort, able to speak in complete sentences and cough Quality of cough: dry Auscultation: wheezes expiratory wheezes and other (Prolonged expiration) Cardio Rate: tachycardic Rhythm: regular rhythm Heart Sounds: S1 normal, S2 normal, normal S1 and S2, no click, no gallops, no murmurs and no rubs Skin General skin exam: no rashes or lesions noted and dry skin (warm) Neuro General: patient alert, patient awake, patient oriented x3, gait normal and moves all extremities Cognition: normal cognition Speech: speech normal Course Vital Signs Vital signs: Vital Signs Temperature 37.1 C 05/10/22 08:17 Pulse 101 H 05/10/22 08:17 Respiratory Rate 16 05/10/22 08:17 Blood Pressure 138/91 H 05/10/22 08:17 Pulse Oximetry 99 05/10/22 08:17 Temperature 37.1 C 05/10/22 08:17 Temperature Source Tympanic 05/10/22 08:17 Pulse 101 H 05/10/22 08:17 Respiratory Rate 16 05/10/22 08:17 Respiratory Effort Short of Breath 05/10/22 08:24 Respiratory Depth Normal 05/10/22 08:24 Blood Pressure 138/91 H 05/10/22 08:17 Pulse Oximetry 99 05/10/22 08:17 Oxygen Delivery Method Room Air 05/10/22 08:17 Oxygen Flow Rate 0 05/10/22 08:17 Pain Level 5 05/10/22 08:17 PAWSS Have you Been Recently Intoxicated or Drunk Within the Last 30 days?: No Have you Ever Experienced Previous Episodes of Alcohol Withdrawal?: No Have you ever Experienced Withdrawal Seizures?: No Have you ever Experienced Delirium Tremens(DT)s?: No Have you ever undergone Alcohol Rehabilitation Treatment (i.e, inpt ot outpatient treatment programs)?: No Have you ever Experienced Blackouts?: No Have you ever Combined Alcohol with other Downers within the last 90 days?: No Have you ever Combined Alcohol with any other Substance of Abuse during the last 90 days?: No Result: 0
--- NOTE | 2022-05-10 08:45 | DI.CT_ITS ---
Exam(s) CT CHEST PE CTA EXAM: CT CHEST PE CTA CLINICAL HISTORY: Shortness of breath, cough. TECHNIQUE: Imaging Protocol: CT angiography of the chest was performed using pulmonary embolus gabino col. Multi planar reconstructions were performed. CONTRAST MATERIAL: Intravenous: Omnipaque 350 Contrast volume: 100 cc COMPARISON: No exams were available for comparison FINDINGS: CHEST: PULMONARY ARTERIES: There are no intraluminal filling defects to suggest acute pulmonary emboli. LUNGS: There is a 9 x 7 millimeter nodular infiltrate in the left lower lobe. Also a few slightly sm aller foci of infiltrate above this level in the superior segment of the left lower lobe. No other p ulmonary findings nor pleural effusions. No focal findings in the trachea and mainstem bronchi.. Th ere are no pleural effusions. MEDIASTINUM: There is no hilar nor anterior mediastinal adenopathy. Slightly increased lymph nodes in the subcarinal region. No supraclavicular nor axillary adenopathy. Partially visualized thyroid ap pears unremarkable. CARDIAC: Heart size is upper normal. There is no pericardial effusion.Caliber of the thoracic aorta is within normal limits. No evidence of aortic dissection. There is no significant shift of the inte rventricular septum. PARTIALLY VISUALIZED UPPERMOST ABDOMEN: No obvious findings OSSEOUS: No significant osseous lesions.. IMPRESSION: 1. No evidence of acute pulmonary emboli. No evidence of pulmonary infarction.No pleural effusions. 2. There few small infiltrates in the left lower lobe is described above. Most probably infectious. These are too subtle to follow on plain chest radiograph. Recommend repeat CT scan after appropriat e clinical interval. 3. RADIATION DOSE DELIVERED: 296.93mGy.cm Total DLP DATA REPOSITORY: All CT scans at this facility are submitted to the National Radiology Data Registry (NRDR) Dose Index Registry (DIR) with the [employer] (ACR). RADIATION OPTIMIZATION: All CT scans at this facility use at least one of these dose optimization te chniques: automated exposure control; mA and/or kV adjustment per patient size (includes targeted exa ms where dose is matched to clinical indication); or iterative reconstruction.
[2022-05-10] MEDS: methylPREDNISolone SUCC 125 MG VIAL IVP (08:48)
[2022-05-10 09:10] LABS: Abs Immature Grans 0.04 10^3/uL (0.0-0.06); Absolute Basophil Count 0.05 10^3/uL (0.0-0.2); Absolute Eosinophil Count 0.04 10^3/uL (0.0-0.7); Absolute Lymphocyte Count 1.25 10^3/uL (1.2-3.4); Absolute Monocyte Count 0.88 10^3/uL (0.1-0.8); Absolute Neutrophil Count 5.35 10^3/uL (1.2-6.7); Basophils % 0.7; Eosinophils % 0.5; HCT 39.2 % (36.0-46.0); HGB 13.3 g/dL (11.2-15.7); Immature Grans % 0.5; Lymphocytes % 16.4; MCH 32.6 pg (27.0-33.0); MCHC 33.9 % (32.0-36.0); MCV 96 fL (80-95); MPV 8.7 fL (8.0-11.0); Monocytes % 11.6; Neutrophils % 70.3; Platelet Count 176 10^3/uL (130-400); RBC 4.08 10^6/uL (3.93-5.22); RDW 12.2 % (11.7-14.6); RDW-SD 43.3 fL; WBC 7.61 10^3/uL (4.4-10.8)
[2022-05-10] MEDS: Normal Saline - Diluent 50 ML VIAL IV (09:24)
[2022-05-10] MEDS: Omnipaque 350 MG/ML 100 ML BTL IJ (09:24)
[2022-05-10] MEDS: Normal Saline Flush 10 ML SYR IVP (09:25)
[2022-05-10 09:26] LABS: Magnesium 1.7 mg/dL (1.8-2.4)
[2022-05-10 09:34] LABS: ALT 20 U/L (14-59); AST 23 U/L (15-37); Albumin 3.9 g/dL (3.4-5.0); Alkaline Phosphatase 68 U/L (46-116); BUN 7 mg/dL (7-18); Bilirubin, Total 0.3 mg/dL (0.2-1.0); CREATININE 0.7 mg/dL (0.55-1.02); Calcium 8.4 mg/dL (8.5-10.1); Chloride 107 mmol/L (98-107); Estimated GFR 109.98 (mL/min/1.73m2); Glucose 84 mg/dL (74-106); Potassium 3.5 mmol/L (3.5-5.1); Sodium 144 mmol/L (136-145); Total Protein 7.1 g/dL (6.4-8.2); Troponin I < 50 ng/L (<or=60)
--- NOTE | 2022-05-10 09:40 | DI.VRAD_ITS ---
PROCEDURE INFORMATION: Exam: CTA Chest With Contrast Exam date and time: 05/10/2022 9:15 AM Age: 42 years old Clinical indication: Cough and shortness of breath TECHNIQUE: Imaging protocol: Computed tomographic angiography of the chest with contrast. 3D rendering (Not supervised by radiologist): MIP and/or 3D reconstructed images were created by the technologist. Contrast material: OMNIPAQUE 350; Contrast volume: 70 ml; Contrast route: INTRAVENOUS (IV); COMPARISON: CR XR CHEST 2V PA LATERAL 05/07/2022 10:24 AM FINDINGS: Pulmonary arteries: No filling defects in the central, lobar, or proximal segmental pulmonary arteries to suggest pulmonary emboli. Normal caliber main pulmonary artery. Aorta: Normal in caliber. Lungs: Mural thickening in the central main airways, most apparent in the lower lobes, is consistent with bronchitis. There is a small endoluminal opacity in a right basilar segmental bronchus, most likely mucus plugging or retained secretions. There are small patchy and nodular ground-glass alveolar opacities in the left lower lobe, most compatible with an infectious or inflammatory pneumonitis. There is no consolidation or mass. Pleural spaces: No pleural effusion or pneumothorax. Heart: Heart size is normal. No coronary artery calcifications. No pericardial effusion. Lymph nodes: Unremarkable. No pathologically enlarged mediastinal, hilar, or axillary lymph nodes. Bones/joints: No suspicious osseous lesions. Soft tissues: Unremarkable. Other findings: None. IMPRESSION: 1. No pulmonary emboli. 2. Findings most compatible with bronchitis with left lower lobe bronchopneumonia. Dictated and Authenticated by: Jaida Mayberry MD. Ordering:DONTAE Chu MD
[2022-05-10 09:51] VITALS: RESP 4
[2022-05-10] MEDS: Albuterol/Ipratropium 3 ML UPD VIAL UPD ×2 (09:51→10:18)
[2022-05-10] MEDS: Normal Saline 1,000 ML 1000 ML IV (09:51)
[2022-05-10 10:18] VITALS: RESP 4
[2022-05-10] MEDS: Doxycycline Hyclate 100 MG CAP PO (10:18)
[2022-06-05 15:07] LABS: Abs Immature Grans 0.01 10^3/uL (0.0-0.06); Absolute Basophil Count 0.05 10^3/uL (0.0-0.2); Absolute Eosinophil Count 0.28 10^3/uL (0.0-0.7); Absolute Lymphocyte Count 1.89 10^3/uL (1.2-3.4); Absolute Monocyte Count 0.58 10^3/uL (0.1-0.8); Absolute Neutrophil Count 3.07 10^3/uL (1.2-6.7); Basophils % 0.9; Eosinophils % 4.8; HCT 37.2 % (36.0-46.0); HGB 12.7 g/dL (11.2-15.7); Immature Grans % 0.2; Lymphocytes % 32.1; MCH 32.8 pg (27.0-33.0); MCHC 34.1 % (32.0-36.0); MCV 96 fL (80-95); MPV 9.4 fL (8.0-11.0); Monocytes % 9.9; Neutrophils % 52.1; Platelet Count 222 10^3/uL (130-400); RBC 3.87 10^6/uL (3.93-5.22); RDW 12.6 % (11.7-14.6); RDW-SD 43.5 fL; WBC 5.88 10^3/uL (4.4-10.8)
== END 2022-06-05 10:45 | disposition home or self-care (01) ==
LOC: NCHCN 06-05 10:44
PROVIDERS: Emergency Provider Nurse Practitioner Family; PCP Nurse Practitioner Family; Visit Provider Nurse Practitioner Family
DX: J18.0 Bronchopneumonia, unspecified organism (principal); J30.1 Allergic rhinitis due to pollen; Z79.51 Long term (current) use of inhaled steroids; Z20.822 Contact with and (suspected) exposure to COVID-19
CPT/HCPCS: 36415; 71275; 80053; 81025; 93005; 96361; 96374; 99285; 83735; 84484; 85025; 93010; J2930; J3490; J7620

== ENCOUNTER 2022-06-27 00:25 | Outpatient (CLI) | payer MEDICAID, SELFPAY ==
--- NOTE | 2022-06-27 15:25 | DI.CT_ITS ---
Exam(s) CT CHEST WO EXAM: CT CHEST WO CLINICAL HISTORY: COUGH, R05, PNEUMONIA, J18.9,RT POST PAIN CAUSING BRONCHIAL WHEEZING TECHNIQUE: Imaging Protocol: Axial computed tomography images with coronal and sagittal reformatted images were created and reviewed CONTRAST MATERIAL: Intravenous: Omnipaque 350 Contrast volume:structured data ml. COMPARISON: CT CT CHEST PE CTA from 05/10/2022 FINDINGS: Tracheobronchial tree: No bronchiectasis or mucous plugging. Mediastinum and Carlyn: No dominant adenopathy or fluid collection. Pulmonary parenchyma: The lungs are much better inflated on the current exam. No visible emphysemato us or fibrotic changes. No consolidation. No dominant measurable mass. Right lower lobe minimal p atchy infectious or inflammatory infiltrate. Clearing of previously noted patchy infiltrates in the left lower lobe. Pleura: No effusion or pneumothorax. Heart: The heart is not dilated. No coronary artery calcifications are seen. Aorta: Thoracic aorta non-dilated. Upper abdomen: Unremarkable. Lymph nodes: Within normal limits. Bones: No significantdegenerative changes. Soft tissues: Unremarkable. IMPRESSION: Minimal patchy infiltrate right lower lobe. No mucous plugging or bronchiectasis. RADIATION DOSE DELIVERED: 355.15mGy.cm Total DLP DATA REPOSITORY: All CT scans at this facility are submitted to the National Radiology Data Registry (NRDR) Dose Index Registry (DIR) with the [employer] (ACR). RADIATION OPTIMIZATION: All CT scans at this facility use at least one of these dose optimization te chniques: automated exposure control; mA and/or kV adjustment per patient size (includes targeted exa ms where dose is matched to clinical indication); or iterative reconstruction.
== END 2022-06-27 00:45 ==
LOC: DI 00:26
PROVIDERS: PCP Nurse Practitioner Family; Visit Provider Allergy & Immunology
DX: R05.8 Other specified cough (principal); J18.9 Pneumonia, unspecified organism; R06.2 Wheezing; R91.8 Other nonspecific abnormal finding of lung field
CPT/HCPCS: 71250

== ENCOUNTER 2022-07-31 14:26 | Outpatient (REF) | payer MEDICAID, SELFPAY ==
[2022-07-31 14:36] LABS: Abs Immature Grans 0.03 10^3/uL (0.0-0.06); Absolute Basophil Count 0.04 10^3/uL (0.0-0.2); Absolute Eosinophil Count 0.32 10^3/uL (0.0-0.7); Absolute Lymphocyte Count 1.24 10^3/uL (1.2-3.4); Absolute Monocyte Count 0.66 10^3/uL (0.1-0.8); Absolute Neutrophil Count 4.12 10^3/uL (1.2-6.7); Basophils % 0.6; HCT 37.1 % (36.0-46.0); HGB 12.8 g/dL (11.2-15.7); Immature Grans % 0.5; Lymphocytes % 19.3; MCH 34.5 pg (27.0-33.0); MCHC 34.5 % (32.0-36.0); MCV 100 fL (80-95); MPV 9.4 fL (8.0-11.0); Monocytes % 10.3; Neutrophils % 64.3; Platelet Count 164 10^3/uL (130-400); RBC 3.71 10^6/uL (3.93-5.22); RDW 13.5 % (11.7-14.6); RDW-SD 49.5 fL; WBC 6.41 10^3/uL (4.4-10.8)
[2022-07-31 15:12] LABS: ALT 14 U/L (14-59); AST 21 U/L (15-37); Albumin 4.2 g/dL (3.4-5.0); Alkaline Phosphatase 51 U/L (46-116); Anion Gap 7.6 mmol/L (3-11); BUN 8 mg/dL (7-18); Bilirubin, Total 0.8 mg/dL (0.2-1.0); CO2 26.4 mmol/L (21.0-32.0); CREATININE 0.7 mg/dL (0.55-1.02); Calcium 8.8 mg/dL (8.5-10.1); Chloride 106 mmol/L (98-107); Estimated GFR 109.98 (mL/min/1.73m2); Glucose 85 mg/dL (74-106); Magnesium 1.5 mg/dL (1.8-2.4); Potassium 3.6 mmol/L (3.5-5.1); Sodium 140 mmol/L (136-145); Total Protein 6.8 g/dL (6.4-8.2); Vitamin B12 268 pg/mL (193-986)
== END 2022-07-31 14:27 | disposition home or self-care (01) ==
LOC: NCHCN 14:26
PROVIDERS: PCP Nurse Practitioner Family; Visit Provider Nurse Practitioner Family
DX: I10 Essential (primary) hypertension (principal); E78.5 Hyperlipidemia, unspecified; J45.20 Mild intermittent asthma, uncomplicated; R07.89 Other chest pain; M25.511 Pain in right shoulder; M30.1 Polyarteritis with lung involvement [Churg-Strauss]
CPT/HCPCS: 80053; 82607; 83735; 85025

== ENCOUNTER 2022-08-05 02:32 | Outpatient (CLI) | payer MEDICAID, SELFPAY ==
--- NOTE | 2022-08-05 | DI.RAD_ITS ---
Exam(s) XR CERVICAL SPINE COMP 4-5V EXAM: XR CERVICAL SPINE COMP 4-5V CLINICAL HISTORY: radiculopathy, m54.12, rt shoulder pain. TECHNIQUE: 2D digital imaging was performed. COMPARISON: No exams were available for comparison FINDINGS: Six views: There is no evidence of fracture, listhesis, nor offset of the spinal laminar line. All the disc spa buster in the cervical spine exhibit normal height. No osteophytes. No facet arthropathy. On the obli que views there are no Luschka joint osteophytes. There are no cervical ribs. IMPRESSION: No significant osseous findings in the cervical spine. DATA REPOSITORY: RADIATION DOSE DELIVERED:
--- NOTE | 2022-08-05 | DI.RAD_ITS ---
Exam(s) XR SHOULDER RT COMPLETE 2+V EXAM: XR SHOULDER RT COMPLETE 2+V CLINICAL HISTORY: RT SHOULDER PAIN, M25.511, RADICULOPATH, M54.12. TECHNIQUE: 2D digital imaging was performed. COMPARISON: CR XR SHOULDER RT COMPLETE 2+V from 05/07/2022 FINDINGS: Four views. No evidence of fracture or dislocation or abnormal soft tissue calcifications. Subacromial space is not diminished. Bone density normal. No osseous lesions. There are no significant degenerative clair nges in the glenohumeral and AC joints. Ipsilateral clavicle appears unremarkable. IMPRESSION: No significant osseous findings in the right shoulder. DATA REPOSITORY: RADIATION DOSE DELIVERED:
--- NOTE | 2022-08-05 | DI.RAD_ITS ---
Exam(s) XR SCAPULA RT EXAM: XR SCAPULA RT CLINICAL HISTORY: CHEST WALL PAIN, R07.89,RADICULOPATHY,M54.12,RT SHOULDER PAIN, M25.511. TECHNIQUE: 2D digital imaging was performed. COMPARISON: CR XR SHOULDER RT COMPLETE 2+V from 08/05/2022 FINDINGS: Two dedicated views of the right scapula: No evidence of fracture nor osseous lesions in the scapula. Coracoid process and acromion appear unr emarkable. AC joint unremarkable. Bone density normal. No osseous lesions evident in the scapula. IMPRESSION: No significant radiograph findings in the right scapula. DATA REPOSITORY: RADIATION DOSE DELIVERED:
== END 2022-08-05 02:52 ==
LOC: DI 02:32
PROVIDERS: PCP Nurse Practitioner Family; Visit Provider Nurse Practitioner Family
DX: M25.511 Pain in right shoulder (principal); M54.12 Radiculopathy, cervical region
CPT/HCPCS: 72050; 73010; 73030

== ENCOUNTER 2022-08-25 15:46 | Outpatient (REF) | payer MEDICAID, SELFPAY ==
--- NOTE | 2022-08-25 15:00 | SKI_PTH ---
PATIENT: Aleyda Madera LOC: NCN #:[id number] AGE/SX: 42/F ROOM: RE08/25/[address]: Evy Escalona : 1980 BED: DIS: 08/25/2022 SPEC #: [id number] RECD: 08/26/22 12:20 STATUS: VANNA THOMAS #: [id number] JCARLOS: 08/25/22 15:[address]: Evy Escalona DEPT: Surgical Specimen RECD BY: Susu Aguayo Tissues: 1 - SKIN BIOPSY(SHAVE/PUNCH) Procedures: SKIN LEVEL 4 Comments: [id number]
== END 2022-08-25 15:47 | disposition home or self-care (01) ==
LOC: NCHCN 15:46
PROVIDERS: PCP Nurse Practitioner Family; Visit Provider Nurse Practitioner Family
DX: L30.8 Other specified dermatitis (principal); R21 Rash and other nonspecific skin eruption
CPT/HCPCS: 88305

== ENCOUNTER 2022-10-07 11:25 | Outpatient (REF) | payer MEDICAID, SELFPAY ==
[2022-10-08 16:25] LABS: Myeloperoxidase Ab IgG <0.2 U; Proteinase 3 Ab (PR3) <0.2 U
== END 2022-10-07 11:26 | disposition home or self-care (01) ==
LOC: NCHCN 11:25
PROVIDERS: PCP Nurse Practitioner Family; Visit Provider Nurse Practitioner Family
DX: M54.12 Radiculopathy, cervical region (principal)
CPT/HCPCS: 83516

== ENCOUNTER 2022-10-30 15:25 | Outpatient (REF) | payer MEDICAID, SELFPAY ==
[2022-10-30 15:33] LABS: Abs Immature Grans 0.02 10^3/uL (0.0-0.06); Absolute Basophil Count 0.05 10^3/uL (0.0-0.2); Absolute Eosinophil Count 0.48 10^3/uL (0.0-0.7); Absolute Lymphocyte Count 1.91 10^3/uL (1.2-3.4); Absolute Neutrophil Count 5.67 10^3/uL (1.2-6.7); Basophils % 0.6; Eosinophils % 5.6; Immature Grans % 0.2; Lymphocytes % 22.1; MCH 33.2 pg (27.0-33.0); MCHC 34.2 % (32.0-36.0); MCV 97 fL (80-95); MPV 9.2 fL (8.0-11.0); Monocytes % 5.8; Neutrophils % 65.7; Platelet Count 290 10^3/uL (130-400); RBC 3.91 10^6/uL (3.93-5.22); RDW 12.1 % (11.7-14.6); RDW-SD 43.7 fL; WBC 8.63 10^3/uL (4.4-10.8)
== END 2022-10-30 15:26 | disposition home or self-care (01) ==
LOC: NCHCN 15:25
PROVIDERS: PCP Nurse Practitioner Family; Visit Provider Nurse Practitioner Family
DX: M30.1 Polyarteritis with lung involvement [Churg-Strauss] (principal); K20.0 Eosinophilic esophagitis
CPT/HCPCS: 85025

== ENCOUNTER 2022-11-19 16:06 | Outpatient (REF) | payer MEDICAID, SELFPAY ==
[2022-11-19 21:31] LABS: TSH (W/Ref FT4) 1.19 uIU/mL (0.36-3.74)
== END 2022-11-19 16:07 | disposition home or self-care (01) ==
LOC: NCHCN 16:06
PROVIDERS: PCP Nurse Practitioner Family; Visit Provider Nurse Practitioner Family
DX: E04.1 Nontoxic single thyroid nodule (principal)
CPT/HCPCS: 84443

== ENCOUNTER 2023-01-06 02:15 | Outpatient (CLI) | payer MEDICAID, SELFPAY ==
--- NOTE | 2023-01-06 12:15 | DI.US_ITS ---
Exam(s) US THYROID EXAM: US THYROID CLINICAL HISTORY: THYROID NODULE, E04.1; 3 MM CYSTIC FOCUS IN LT THYROID. TECHNIQUE: Ultrasound thyroid performed using standard protocol. COMPARISON: None FINDINGS: Both thyroid lobes as well as the isthmus exhibit normal size and relatively homogeneous echotexture with the exception of 2 findings in the left lobe as described below. RIGHT THYROID LOBE: Measures 1.2 cm AP x 1.4 cm wide x 4.1 cm craniocaudal No nodules in the right lobe. ISTHMUS: Normal thickness. There are no nodules in the isthmus. LEFT THYROID LOBE: Measures 1.2 cm AP x 1.2 wide x 3.5 cm craniocaudal There are 2 focal findings in the left lobe. The more superior of the 2 is a simple 4 mm cyst. In the inferior pole there is a small solid nodule which measures 5 x 3 x 5 mm with characteristics a s below: Composition: Solid-2 points Echogenicity: Hypoechoic-2 points Shape: Wider than taller in the transverse plane-0 points Margin: Smooth-0 points Echogenic Foci: None-0 points Total points for this nodule: 4 ACR Ti-Rads Category: 4 This TR4 nodule can be watched conservatively as it does not fall into the criteria for biopsy. LYMPH NODES: There is no significant adenopathy. IMPRESSION: 1. Both thyroid lobes exhibit normal size, as does the isthmus. 2. There is a small solid TR4 nodule in the inferior aspect of the left lobe which measures 5 mm maxi mum measurement. This does not require biopsy 3. There is no significant lymphadenopathy. Recommend repeat ultrasound in 1 year. DATA REPOSITORY:
== END 2023-01-06 02:35 ==
LOC: DI 02:15
PROVIDERS: PCP Nurse Practitioner Family; Visit Provider Nurse Practitioner Family
DX: E04.1 Nontoxic single thyroid nodule (principal)
CPT/HCPCS: 76536

== ENCOUNTER 2023-01-22 10:59 | Outpatient (CLI) | payer MEDICAID, SELFPAY ==
--- NOTE | 2023-01-22 10:44 | DI.RAD_ITS ---
Exam(s) XR CHEST 2V PA LATERAL EXAM: XR CHEST 2V PA LATERAL CLINICAL HISTORY: PREOPERATIVE EXAM, Z01.818. TECHNIQUE: 2D digital imaging was performed. COMPARISON: CR XR CHEST 2V PA LATERAL from 05/07/2022 FINDINGS: 2 views: Heart size is normal. The mediastinum is not widened. Lungs are clear. No infiltrates nor pleural effusions. IMPRESSION: No acute pulmonary findings. DATA REPOSITORY: RADIATION DOSE DELIVERED:
== END 2023-01-22 11:19 ==
LOC: DI 10:59
PROVIDERS: PCP Nurse Practitioner Family; Visit Provider Nurse Practitioner Family
DX: Z01.818 Encounter for other preprocedural examination (principal)
CPT/HCPCS: 71046

== ENCOUNTER 2023-01-23 01:30 | Outpatient (CLI) | payer MEDICAID, SELFPAY ==
[2023-01-23 12:53] LABS: Abs Immature Grans 0.02 10^3/uL (0.0-0.06); Absolute Basophil Count 0.07 10^3/uL (0.0-0.2); Absolute Eosinophil Count 0.45 10^3/uL (0.0-0.7); Absolute Lymphocyte Count 1.89 10^3/uL (1.2-3.4); Absolute Monocyte Count 0.74 10^3/uL (0.1-0.8); Absolute Neutrophil Count 4.88 10^3/uL (1.2-6.7); Basophils % 0.9; Eosinophils % 5.6; HCT 38.8 % (36.0-46.0); Immature Grans % 0.2; Lymphocytes % 23.5; MCH 32.2 pg (27.0-33.0); MCHC 33.5 % (32.0-36.0); MCV 96 fL (80-95); MPV 8.6 fL (8.0-11.0); Monocytes % 9.2; Neutrophils % 60.6; Platelet Count 179 10^3/uL (130-400); RBC 4.04 10^6/uL (3.93-5.22); RDW 12.6 % (11.7-14.6); RDW-SD 44.2 fL; WBC 8.05 10^3/uL (4.4-10.8)
[2023-01-23 13:05] LABS: PTT Activated 21.3 sec (21.5-31.9); Prothrombin Time 10.4 sec (9.3-11.0)
[2023-01-23 17:47] LABS: Anion Gap 8.3 mmol/L (3-11); BUN 11 mg/dL (7-18); CO2 27.7 mmol/L (21.0-32.0); CREATININE 0.7 mg/dL (0.55-1.02); Calcium 9.1 mg/dL (8.5-10.1); Chloride 104 mmol/L (98-107); Estimated GFR 109.98 (mL/min/1.73m2); Glucose 84 mg/dL (74-106); Magnesium 1.7 mg/dL (1.8-2.4); Potassium 4.2 mmol/L (3.5-5.1); Sodium 140 mmol/L (136-145)
[2023-01-23 18:48] LABS: Folate 11.2 ng/mL (8.6-20.0); Vitamin B12 335 pg/mL (193-986)
[2023-01-23 18:51] LABS: HCG Quant, Pregnancy < 1 mIU/mL (1-3)
== END 2023-01-23 01:31 | disposition home or self-care (01) ==
LOC: LBO 01:30
PROVIDERS: PCP Nurse Practitioner Family; Visit Provider Nurse Practitioner Family
DX: Z01.818 Encounter for other preprocedural examination (principal)
CPT/HCPCS: 36415; 80048; 82607; 82746; 83735; 84702; 85025; 85610; 85730

== ENCOUNTER 2023-08-07 14:48 | Outpatient (REF) | payer MEDICAID, SELFPAY ==
[2023-08-07 14:31] LABS: Abs Immature Grans 0.02 10^3/uL (0.0-0.06); Absolute Basophil Count 0.07 10^3/uL (0.0-0.2); Absolute Eosinophil Count 0.56 10^3/uL (0.0-0.7); Absolute Lymphocyte Count 1.93 10^3/uL (1.2-3.4); Absolute Monocyte Count 0.72 10^3/uL (0.1-0.8); Absolute Neutrophil Count 4.91 10^3/uL (1.2-6.7); Basophils % 0.9; Eosinophils % 6.8; HCT 36.7 % (36.0-46.0); HGB 12.7 g/dL (11.2-15.7); Immature Grans % 0.2; Lymphocytes % 23.5; MCH 33.2 pg (27.0-33.0); MCHC 34.6 % (32.0-36.0); MCV 96 fL (80-95); MPV 9.1 fL (8.0-11.0); Monocytes % 8.8; Neutrophils % 59.8; Platelet Count 251 10^3/uL (130-400); RBC 3.82 10^6/uL (3.93-5.22); RDW 13.1 % (11.7-14.6); RDW-SD 46.5 fL; WBC 8.21 10^3/uL (4.4-10.8)
[2023-08-07 14:54] LABS: Calculated LDL 120 mg/dL (<100); Cholesterol 217 mg/dL (<200); Folate 19.6 ng/mL (8.6-20.0); HDL Cholesterol 63 mg/dL (40-60); Magnesium 1.5 mg/dL (1.8-2.4); Triglyceride 174 mg/dL (<150); Vitamin B12 433 pg/mL (193-986)
== END 2023-08-07 14:49 | disposition home or self-care (01) ==
LOC: NCHCN 14:48
PROVIDERS: PCP Nurse Practitioner Family; Visit Provider Nurse Practitioner Family
DX: M30.1 Polyarteritis with lung involvement [Churg-Strauss] (principal)
CPT/HCPCS: 80061; 82607; 82746; 83735; 85025

== ENCOUNTER → 2023-08-25 02:14 | Outpatient (CLI) | payer MEDICAID, SELFPAY ==
--- NOTE | 2023-08-25 | DI.MAMMO_ITS ---
Exam(s) MAMMO SCREENING EXAM: MAMMO SCREENING CLINICAL HISTORY: SCREENING MAMMO FOR BREAST CANCER Z12.31 TECHNIQUE: Mammograms were interpreted according to the usual protocol including computer analysis w [employer] CAD system, tomosynthesis and C-view imaging. COMPARISON: No exams were available for comparison. Baseline examination. FINDINGS: The breasts are composed of scattered fibroglandular densities, Breast Density category B. No suspicious masses or suspicious microcalcifications are seen. No skin thickening or abnormal axillary lymph nodes are seen. IMPRESSION: BI-RADS Category 1, Negative mammogram Yearly screening mammography is recommended. Breast Density - Category B, scattered fibroglandular densities. A negative radiographic report should not delay biopsy if a dominant or clinically suspicious mass is present. Up to ten percent of cancers are not identified on mammography. A negative report may reinforce clinical impression. Adenosis and dense breasts may obscure an underlying neoplasm. False positive reports average 6 to 10%. Patient will receive a letter notifying them of these results.
== END ==
PROVIDERS: PCP Nurse Practitioner Family; Visit Provider Nurse Practitioner Family
DX: Z12.31 Encounter for screening mammogram for malignant neoplasm of breast (principal)
CPT/HCPCS: 77063; 77067

== ENCOUNTER 2023-09-22 09:00 | Day surgery (SDC) | payer MEDICAID, SELFPAY ==
[2023-09-22 09:46] VITALS: PULSE 68; RESP 16; TEMP 36.2; O2SAT 100
[2023-09-22] MEDS: Lactated Ringers 1,000 ML 80 ML IV (09:50)
[2023-09-22 09:57] VITALS: BP 149/107
--- NOTE | 2023-09-22 10:04 | W.ANESPRE ---
General Info Date of Service Date Performed: 09/22/23 Height: 5 ft 3 in Weight: 59.421 kg Body Mass Index (BMI): 23.2 Surgical Procedure: Operation Date: 09/22/23 10:35 Proposed Procedure Side Surgeon susan Gamino MD Meds Allergies and Home Medications Allergies Allergy/AdvReac Type Severity Reaction Status Date / Time No Known Allergies Allergy Verified 09/22/23 09:27 Home Medication Medication Instructions Recorded mometasone-formoterol HFA 100 2 puff inhalation Q12H #13 grams 05/28/19 mcg-5 mcg/actuation aerosol inhaler (Dulera) albuterol sulfate 90 mcg/actuation 2 puff inhalation Q6H PRN 08/06/22 aerosol inhaler (ProAir HFA) fluticasone propionate 50 1 spray intranasal BID 08/06/22 mcg/actuation nasal spray,suspension (Flonase Allergy Relief) lisinopril 20 mg tablet 20 mg PO DAILY 08/06/22 montelukast 10 mg tablet 10 mg PO DAILY PRN 08/06/22 magnesium oxide 400 mg PO DAILY 10/13/22 vitamin B complex 1 cap PO DAILY 10/13/22 prochlorperazine maleate 5 mg 5 mg PO QID PRN nausea and 09/21/23 tablet (Compazine) vomiting #7 tabs Current Visit Medications: Current Medications Generic Name Dose Route Start Last Admin Trade Name Freq PRN Reason Stop Dose Admin Ringer's Solution 1,000 mls @ 80 mls/hr 09/22/23 06:00 09/22/23 09:50 IV 09/22/23 23:59 80 mls/hr INFUSION MIGEL Administration IV Miscellaneous Supplies 1 each 09/22/23 06:00 Iv Access IV 09/22/23 23:59 DIRECTED MIGEL Sodium Chloride 0 ml 09/22/23 06:00 Normal Saline Flush 10 Ml Syr IV 09/22/23 23:59 PRN PRN Sodium Chloride 0 ml 09/22/23 06:00 Normal Saline 10 Ml Vial IJ 09/22/23 23:59 DIRECTED PRN Sterile Water 0 ml 09/22/23 06:00 Water,Injection,Sterile 10 Ml Vial IJ 09/22/23 23:59 DIRECTED PRN PFSH Active Problems Active Problems: Problem Status Onset Code Right shoulder pain M25.511 Scapular dyskinesis G25.89 Family history of colon cancer Z80.0 Intermittent asthma with allergic rhinitis J45.20 Bronchopneumonia J18.0 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 GERD (gastroesophageal reflux disease) K21.9 Esophageal foreign body T18.108A Medical History Medical History Intermittent asthma Chronic sinusitis Eosinophilic esophagitis Churg-Janna syndrome Exposure to influenza Chest wall pain Radiculopathy affecting upper extremity H/O macrocytosis Hypomagnesemia Rash, skin Eczema Hypertension Hyperlipidemia Surgical History Surgical History S/P spinal surgery C6-7 FOCAL History of esophagogastroduodenoscopy (EGD) (~04/2019) Tobacco Smoking/Tobacco Use Status: Never Alcohol Alcohol Intake: current Alcohol intake frequency: a few times a week Substance Use Substance use: Never Substance use type: does not use Vital Signs and Lab Results Vital Signs Most Recent Vital Signs in EMR: Most Recent Vital Signs Temp Pulse Resp BP Pulse Ox 36.2 C L 68 16 149/107 H 100 09/22/23 09:46 09/22/23 09:46 09/22/23 09:46 09/22/23 09:57 09/22/23 09:46 Point of Care Results Point of Care Results: POC- Test(urine) Negative 09/22/23 09:50 Lab Results Blood Type / Crossmatch: No Data to Display Complete Blood Count: No Data to Display Complete Metabolic Panel: No Data to Display Liver Function Panel: No Data to Display Coagulation Panel: No Data to Display Cardiac Panel: No Data to Display Arterial Blood Gas: No Data to Display Venous Blood Gas: No Data to Display Pancreas Panel: No Data to Display Thyroid Panel: No Data to Display Infectious Disease: No Data to Display Blood Cultures: No Data to Display Toxicology Panel: No Data to Display Panel: No Data to Display Anesthesia Assessment and Plan Anesthesia History Personal History: No History of Anesthesia Complications Family History: No Family History of Anesthesia Complications Exercise Tolerance Exercise Tolerance: Metabolic Equivalents>4 Pertinent Negatives Pertinent Negatives: No Symptoms of GERD, No Major Cardiovascular Symptoms or Complaints, No Major Pulmonary Symptoms or Complaints and No History of CVA/TIA Cardiac & Pulmonary Exam Cardiac Exam: Normal S1/S2 Heart Sounds Pulmonary Exam: Clear Bilateral Breath Sounds Cardiac and Pulmonary Comment:: No recent respiratory concerns with preventative meds Implantable Cardiac Device Does patient have a Pacemaker or an ICD?: No Airway Exam Known Difficult Airway: No Mallampati Class: 1 Mouth Opening: Normal (> 3cm) Thyromental Distance: Greater than 3 cm Neck Range of Motion: Full ROM Neck Circumference: Normal Teeth Condition: Normal Dentition ASA Classification ASA Score: ASA 2 Emergency Case?: No NPO Status NPO Status: NPO Clears >2 hours, Solids >8 hours Status Status: Negative HCG Anesthesia Plan Resuscitation Status: Full Code Anesthesia Technique: General Anesthesia Airway Planned: Natural Airway Monitors Used: Standard Monitors
--- NOTE | 2023-09-22 10:49 | COLE_ITS ---
Date of service: 09/22/23 Time of Service: 10:49 Colonoscopy Report Procedure Description: PROCEDURES PERFORMED: 1. Colonoscopy with hot snare polypectomy x2 2. Endoscopic clip placement PREOPERATIVE DIAGNOSIS: Screening colonoscopy POSTOPERATIVE DIAGNOSIS: Colon polyps, redundant colon SURGEON: Kennedy Gamino MD INDICATION for procedure: The patient is a 43-year-old woman with no symptoms. Her brother had colon cancer in his 40s. She has never had a colonoscopy be fore. FINDINGS: In the transverse colon, 2 polyps were found. 1 was 3-5 mm in size and removed with hot snare technique. The other was 10-12 mm in size and removed with hot snare technique. The mucosal defect on the larger 1 was approximated with an Endo Clip. SURVEILLANCE interval/FOLLOW-UP: 3 years considering the family history and the findings today. SPECIMENS: yes EBL: Minimal COMPLICATIONS: None QUALITY of prep: Excellent Procedure in detail: The patient gave written consent and was in agreement with the indications, the potential risks as well as the benefits of the procedure. They were taken to the endoscopy suite and laid in the left lateral decubitus position. A timeout was performed and anesthesia was administered which was tolerated well. I started the procedure. Digital rectal and visual examination was performed and grossly within normal limits. A well-lubricated flexible colonoscope was then introduced and passed without any notable difficulty all the way to the cecum identified by the ileocecal valve and the appendiceal orifice. The terminal ileum was intubated and looked normal. The scope was then slowly withdrawn with the above-noted findings. The patient tolerated the procedure well and was taken to the PACU in hemodynamically stable condition.
--- NOTE | 2023-09-22 10:49 | W.PM.DSUDISC ---
Date of service: 09/22/23 Time of Service: 10:49 Discharge Plan Disposition Patient Disposition: Home Condition: Good Discharge Details Attending Provider: Guevara Gamino Primary Care Provider: Evy Escalona Home Meds and New Rx's Prescriptions: No Action lisinopril 20 mg tablet 20 mg PO DAILY albuterol sulfate [ProAir HFA] 90 mcg/actuation HFA aerosol inhaler 2 puff inhalation Q6H PRN montelukast 10 mg tablet 10 mg PO DAILY PRN fluticasone propionate [Flonase Allergy Relief] 50 mcg/actuation spray,suspension 1 spray intranasal BID Rx Instructions: administer into each nostril magnesium oxide 400 mg magnesium tablet 400 mg PO DAILY vitamin B complex Capsule 1 cap PO DAILY prochlorperazine maleate [Compazine] 5 mg tablet 5 mg PO QID PRN (Reason: nausea and vomiting) Qty: 7 0RF Dulera 100-5 mcg/actuation HFA aerosol inhaler 2 puff IH Q12H Qty: 13 1RF Discharge Instructions Additional Instructions: FINDINGS: Some polyps were found and removed today. This is why we do the colonoscopies. This is especially important because of your family history. You should repeat another colonoscopy in 3 years. Stand Alone Forms: Colonoscopy Post Instructions Activity:: Activity as Tolerated Diet:: As Tolerated Discharge Orders Discharge Orders: Discharge Order (Routine); Ordered 09/22/23 Ordered By: Guevara Gamino
[2023-09-22 10:57] VITALS: BMI 23.2
--- NOTE | 2023-09-22 11:19 | BOWEL_PTH ---
PATIENT: Aleyda Madera LOC: [facility] U#:[id number] AGE/SX: 43/F ROOM: RE09/22/[address]: Guevara Gamino : 1980 BED: DIS: 09/22/2023 SPEC #: [id number] RECD: 09/22/23 12:47 STATUS: VANNA RE #: [id number] JCARLOS: 09/22/23 11:[address]: Guevara Gamino DEPT: Surgical Specimen RECD BY: Susu Aguayo ENTERED: 09/22/23 12:48 SP TYPE: Bowel OTHR DR: Evy Escalona Tissues: 1 - BIOPSY BOWEL 2 - BIOPSY BOWEL Procedures: GROSS AND MICRO LEVEL 4 Comments: [id number]
[2023-09-22 11:58] VITALS: BP 120/85; PULSE 75; RESP 16; TEMP 36.5; O2SAT 100
--- NOTE | 2023-09-22 12:30 | W.ANESPOSTOP ---
Postoperative Evaluation Date, Time and Location Date Performed: 09/22/23 Time Performed: 12:06 Patient Location: Day Surgery Unit Vital Signs Most Recent Imported Vital Signs: Most Recent Vital Signs Temp Pulse Resp BP Pulse Ox 36.5 C 75 16 120/85 100 09/22/23 11:58 09/22/23 11:58 09/22/23 11:58 09/22/23 11:58 09/22/23 11:58 Pain Score Most Recent Pain Score: Most Recent Pain Score Pain Level 0 09/22/23 12:15 Assessment Mental Status: Awake (Alert & Oriented to Patient Baseline) Airway and Respiratory Function: Patent airway with normal (patient baseline) respiratory exam Cardiovascular Function: Hemodynamically Stable Hydration Status: Adequately Hydrated Nausea & Vomiting: No Nausea or Vomiting Pain: Pt. Denies Any Pain Peripheral Nerve Block: Patient did not receive a nerve block
[2023-09-22 12:40] VITALS: BP 142/98; PULSE 75; RESP 16; TEMP 36.2; O2SAT 100
== END 2023-09-22 12:53 | disposition home or self-care (01) ==
PROVIDERS: PCP Nurse Practitioner Family; Visit Provider Student in an Organized Health Care Education/Training Program
PROC: 0DJD8ZZ Inspection of Lower Intestinal Tract, Via Natural or Artificial Opening Endoscopic (ICD-10-PCS; CPT 45378; principal; 2023-09-22 10:30)
DX: Z12.11 Encounter for screening for malignant neoplasm of colon (principal); D12.3 Benign neoplasm of transverse colon; K21.9 Gastro-esophageal reflux disease without esophagitis; Z80.0 Family history of malignant neoplasm of digestive organs
CPT/HCPCS: 45385; 00123; 88305; J2001; J2405; J2704

== ENCOUNTER 2024-01-28 09:49 | Outpatient (REF) | payer MEDICAID, SELFPAY ==
[2024-01-28 14:27] LABS: HCT 42.3 % (36.0-46.0); HGB 14.2 g/dL (11.2-15.7); MCH 32.5 pg (27.0-33.0); MCHC 33.6 % (32.0-36.0); MCV 97 fL (80-95); MPV 9.2 fL (8.0-11.0); Platelet Count 345 10^3/uL (130-400); RBC 4.37 10^6/uL (3.93-5.22); RDW 11.4 % (11.7-14.6); WBC 7.21 10^3/uL (4.4-10.8)
[2024-01-28 14:49] LABS: Anion Gap 7.4 mmol/L (3-11); BUN 9 mg/dL (7-18); CO2 29.6 mmol/L (21.0-32.0); CREATININE 0.9 mg/dL (0.55-1.02); Calcium 8.8 mg/dL (8.5-10.1); Chloride 109 mmol/L (98-107); Estimated GFR 80.84 (mL/min/1.73m2); FREE T4 0.83 ng/dL (0.76-1.46); Glucose 89 mg/dL (74-106); Potassium 4.6 mmol/L (3.5-5.1); Sodium 146 mmol/L (136-145); TSH 1.35 uIU/Ml (0.36-3.74)
[2024-01-28 22:56] LABS: T3,Free 2.8 pg/mL (2.8-5.3)
== END 2024-01-28 09:50 | disposition home or self-care (01) ==
LOC: NCHCN 09:49
PROVIDERS: PCP Nurse Practitioner Family; Visit Provider Nurse Practitioner Family
DX: I10 Essential (primary) hypertension (principal); E83.42 Hypomagnesemia; E04.1 Nontoxic single thyroid nodule; Z00.00 Encounter for general adult medical examination without abnormal findings
CPT/HCPCS: 80048; 85027; 83735; 84439; 84443; 84481

== ENCOUNTER 2024-04-26 01:20 | Outpatient (CLI) | payer MEDICAID, SELFPAY ==
--- NOTE | 2024-04-26 | DI.CT_ITS ---
Exam(s) CT SINUS WO EXAM: CT SINUS WO CLINICAL HISTORY: NASAL CONGESTION,R09.81,SINUS INFECTION,J01.90,POOR RESPONSE TO STEROIDS. TECHNIQUE: Imaging Protocol: Axial computed tomography images with coronal and sagittal reformatted images were created and reviewed. No IV Contrast COMPARISON: CT SINUS CT WITHOUT CONTRAST from 12/26/2016 FINDINGS: MAXILLARY SINUSES: Both maxillary sinuses are again noted to be hypoplastic and with significant mucosal thickening bila terally which is almost unchanged from 2017. Complete opacification of the right maxillary sinus and circumferential mucosal thickening of the left maxillary sinus. Also mucosal thickening in the osti omeatal units bilaterally. Are very thin medial shea of both maxillary sinuses again evident.. ETHMOIDAL AIR CELLS: There is opacification of multiple ethmoidal air cells bilaterally, including th e frontoethmoidal recesses. On the present study there are opacified infraorbital ethmoidal Sandro c ells evident, more so than previous SPHENOID SINUSES: There is some mucosal thickening and both sides of the sphenoid sinuses, more so th an previous. FRONTAL SINUSES: Well aerated. No mucosal thickening nor fluid levels. NASAL SEPTUM AND TURBINATES:Nasal septum is relatively midline with no prominent deviation nor eviden ce of significant nasal septal spur. There is no evidence of alexandre bullosa. OTHER: There is a sclerotic non expansile bone lesion measuring 6 x 4 mm in the left side of the cliv us/basiocciput, similar to previous and probably a benign bone island. No other bone lesions identif ied. IMPRESSION: 1. As above. Some further progression when compared to 12/26/2016. On the present study there also appear to be opacified infraorbital ethmoidal Sandro cells. 2. Maxillary sinuses are again noted be bilaterally somewhat diminutive. The amount of mucosal thic kening in the sinuses is as above and unchanged from 2017 3. Other findings as above. RADIATION DOSE DELIVERED: 90.39mGy.cm Total DLP DATA REPOSITORY: All CT scans at this facility are submitted to the National Radiology Data Registry (NRDR) Dose Index Registry (DIR) with the [employer] (A[employer]). RADIATION OPTIMIZATION: All CT scans at this facility use at least one of these dose optimization te chniques: automated exposure control; mA and/or kV adjustment per patient size (includes targeted exa ms where dose is matched to clinical indication); or iterative reconstruction.
== END 2024-04-26 01:40 ==
LOC: DI 01:20
PROVIDERS: PCP Nurse Practitioner Family; Visit Provider Allergy & Immunology
DX: J01.90 Acute sinusitis, unspecified
CPT/HCPCS: 70486

== ENCOUNTER 2024-04-27 01:44 | Outpatient (CLI) | payer MEDICAID, SELFPAY ==
[2024-04-27 15:38] LABS: Abs Immature Grans 0.05 10^3/uL (0.0-0.06); Absolute Basophil Count 0.09 10^3/uL (0.0-0.2); Absolute Eosinophil Count 0.72 10^3/uL (0.0-0.7); Absolute Monocyte Count 0.84 10^3/uL (0.1-0.8); Absolute Neutrophil Count 5.31 10^3/uL (1.2-6.7); Eosinophils % 7.8 %; HCT 38.9 % (36.0-46.0); HGB 13.1 g/dL (11.2-15.7); Immature Grans % 0.5 %; Lymphocytes % 23.9 %; MCHC 33.7 % (32.0-36.0); MCV 98 fL (80-95); MPV 8.6 fL (8.0-11.0); Monocytes % 9.1 %; Neutrophils % 57.7 %; Platelet Count 193 10^3/uL (130-400); RBC 3.97 10^6/uL (3.93-5.22); RDW 12.9 % (11.7-14.6); RDW-SD 46.6 fL; WBC 9.21 10^3/uL (4.4-10.8)
== END 2024-04-27 01:45 | disposition home or self-care (01) ==
PROVIDERS: PCP Nurse Practitioner Family; Visit Provider Allergy & Immunology
DX: M30.1 Polyarteritis with lung involvement [Churg-Strauss] (principal)
CPT/HCPCS: 36415; 85025

== ENCOUNTER 2024-06-28 06:11 | Day surgery (SDC) | payer MEDICAID, SELFPAY ==
--- NOTE | 2024-06-27 12:25 | HPE_ITS ---
Date of service: 06/28/24 Time of Service: 07:36 Assessment and Plan Assessment and plan (1) GERD (gastroesophageal reflux disease): Status: Chronic (2) Churg-Janna syndrome with lung involvement: Status: Acute (3) Intermittent asthma with allergic rhinitis: Status: Acute (4) Eosinophilic esophagitis: Assessment and plan: Informed consent is obtained for the procedural (explained in simple layman's terms that the pt. and/or family could understand) explaining risks vs benefits and alternatives to the procedure and consequences if we do not do the procedure and need/rational for the procedure. Risks include but are not limited to: bleeding, infection, perforation of esophagus, stomach, colon, small intestines, bronchus or trachea, or PTX. This would necessitate emergency surgery to repair the damage w/ possible ostomy; and other associated complications w/ the required surgery. Also complications of anesthesia including aspiration, MD/CVA/. History of Present Illness Narrative: Patient is here today for egd for f/u from ulcer. and eosinophillic esophagitis. ? They not having any chest pain or shortness of breath, currently.? They are not experiencing any fever or chills.? They deny any productive cough or upper respiratory tract infection signs or symptoms.? They are not having abdominal pain, or nausea and vomiting.? They have not had any changes in medications, past medical history or past surgical history since previously being seen in the office. They have not had any accidents or have been in the ER since the clinic pre-operative evaluation. ??I reviewed the procedure with the patient today, including risks and benefits of the procedure, and what they could expect at home for recovery.? All questions are answered to the patient?s satisfaction today, and they are stable to proceed with the proposed procedure. Eosinophilic Esophagitis. They continue to have issues with dysphagia, particularly for pills. They report occasional heartburn. A prescription for Protonix was provided. An endoscopy with biopsy was recommended to assess the current status of the condition. They were advised to consult their neuropsychiatrist for a common food allergy panel to identify potential triggers. Continuation of their inhaler regimen was also advised, and they should bring their albuterol inhaler to the procedure. pt was given information on EoE. they will be scheduled for an EGD Informed consent is obtained for the procedural (explained in simple layman's terms that the pt. and/or family could understand) explaining risks vs benefits and alternatives to the procedure and consequences if we do not do the procedure and need/rational for the procedure. Risks include but are not limited to: bleeding, infection, perforation of esophagus, stomach, colon, small intestines, bronchus or trachea, or PTX. This would necessitate emergency surgery to repair the damage w/ possible ostomy; and other associated complications w/ the required surgery. Also complications of anesthesia including aspiration, MD/CVA/. The patient has never had an EGD previously. ? There is no family history of any esophageal/gastric cancer.? Patient has not had any weight loss.? Their appetite is good.? The patient has been eating: Stomach medications: no Swallowing: meats Reflux/Wet Burps: Nausea/vomiting: Epigastric pain: Chest pain/burning: yes Melena/blood in stools/anemia: Constipation or diarrhea: Dental issues: Nocturnal problems: Prior head/neck/esophageal surgery or radiation. The patient is a 44-year-old individual here today for a follow-up regarding e osinophilic esophagitis. They had a biopsy done in 2018 which confirmed the diagnosis, but they have not followed up on it. They continue to have issues with dysphagia, particularly with pills, which they feel get lodged in their throat. Additionally, they experience heartburn. They have been under the care of an neuropsychiatrist for an extended period, who diagnosed them with Churg-Janna syndrome. However, no food testing has been conducted. They have not identified any specific food intolerances. They do not consume coffee or energy drinks but occasionally drink soda. They do not regularly take aspirin, ibuprofen, Motrin, Advil, or Aleve. They underwent a colonoscopy last fall due to a family history of colon cancer. They had C5-C6 replaced with a titanium disc in 01/2023 and had no problems with anesthesia. Dysphagia w/ meats Hx of EoE Coffee: none Soda/Tea: occ soda ASA/NSAID?s: no Tobacco: no THC: no ETOH: occ weekends They deny any problems with anesthesia in the past. Anesthesia: general (without airway) Previous surgical intolerances: No Previous surgical complications: No Pulmonary risk factors: Planned procedure: Yes Sleep apnea risks: No COPD/Asthma/Smoker: Can climb one flight of stairs (12-13 steps) in less than 30 seconds without stopping and without symptoms: Yes The surgery proposed for this patient is: low risk Active cardiac conditions: none Active risk factors: none ASA (acetylsalicylic acid): not used Beta blockers: not used Kidneys: no concerns DM: ?Patient needs to be Natural airway general because of:? Medical conditions/airway control/ ?Pain control? Meds/NKDA/PMHx/PSHx: see [facility] anesthesia C5-6 replaced. replaced year 02/18 egd CE Review of Systems All systems reviewed & are unremarkable except as noted in HPI and below PFSH All Active Problems Right shoulder pain (Acute) Scapular dyskinesis (Acute) Family history of colon cancer (Acute) Intermittent asthma with allergic rhinitis (Acute) Bronchopneumonia (Acute) Churg-Janna syndrome with lung involvement (Acute) GERD (gastroesophageal reflux disease) (Chronic) Medical History Esophageal foreign body Tubular adenoma (~08/2023) Intermittent asthma Chronic sinusitis Eosinophilic esophagitis Churg-Janna syndrome Exposure to influenza Chest wall pain Radiculopathy affecting upper extremity H/O macrocytosis Hypomagnesemia Rash, skin Eczema Hypertension Hyperlipidemia Surgical History History of colonoscopy (~08/2023) path sent S/P spinal surgery C6-7 FOCAL History of esophagogastroduodenoscopy (EGD) (~04/2019) Social History Smoking/Tobacco Use Status: Never Smoking risk assessment performed?: Yes Alcohol Intake: current Alcohol Intake frequency: a few times a week Drug use: Never Substance use type: does not use Housing: house Current gender identity: female Do you feel safe at home: Yes Do you feel safe in your relationship?: Yes Meds Allergies and Home Medications Allergies Allergy/AdvReac Type Severity Reaction Status Date / Time No Known Allergies Allergy Verified 06/28/24 06:29 Home Medications ?Medication ?Instructions ?Recorded ?Confirmed ?Type mometasone-formoterol HFA 100 2 puff inhalation Q12H #13 grams 05/28/19 06/28/24 Rx mcg-5 mcg/actuation aerosol inhaler (Dulera) albuterol sulfate 90 mcg/actuation 2 puff inhalation Q6H PRN 08/06/22 06/28/24 History aerosol inhaler (ProAir HFA) fluticasone propionate 50 1 spray intranasal BID 08/06/22 06/28/24 History mcg/actuation nasal spray,suspension (Flonase Allergy Relief) lisinopril 20 mg tablet 20 mg PO DAILY 08/06/22 06/28/24 History montelukast 10 mg tablet 10 mg PO DAILY PRN 08/06/22 06/28/24 History magnesium oxide 400 mg PO DAILY 10/13/22 06/28/24 History vitamin B complex 1 cap PO DAILY 10/13/22 06/28/24 History prochlorperazine maleate 5 mg 5 mg PO QID PRN nausea and 09/21/23 06/28/24 Rx tablet (Compazine) vomiting #7 tabs pantoprazole 40 mg tablet,delayed 40 mg PO DAILY #90 tabs 05/12/24 06/28/24 Rx release (Protonix) Exam Narrative Exam Narrative: PHYSICAL EXAM GENERAL APPEARANCE: Alert, healthy appearance, oriented, x 3,? in no acute distress HYDRATION: Well hydrated HEAD, EYES, EARS, NECK, THROAT: Head is normocephalic, pupils equal, round, reactive to light and accommodation, ocular movement intact, sclera clear and no jaundice. ?Dentition intact. LUNGS: normal respiration/normal chest excursion. ?Clear to auscultation bilaterally. ?No wheeze. ?HEART: Regular rate and rhythm. no murmurs ABDOMEN: soft and non-tender to palpation.? Normal bowel sounds.? Time Spent Time spent with Patient: <40 minutes Time was spent: preparing to see the patient(eg.review tests), obtaining and/or reviewing separately otained hiistory, ordering medications,tests, procedures, referring, communicating with other health home health care physician, indepentently interpreting results, counseling the patient, care coordination and other
--- NOTE | 2024-06-27 12:31 | ENDO_ITS ---
Date of service: 06/28/24 Time of Service: 08:27 Endoscopy Report DATE OF PROCEDURE: 06/28/24 PRE-OP DIAGNOSIS: Eosinophilic esophagitis/GERD/Churg-Janna POST-OP DIAGNOSIS: same SURGEON: Nicky Garcia ANESTHESIA TYPE: General:No Airway ESTIMATED BLOOD LOSS: 2 PATHOLOGY: other COMPLICATIONS: None DISPOSITION: same day PROCEDURE DESCRIPTION: Informed consent was obtained from the pt; explaining the benefits and Risks: bleeding, infections, perforations {which could require surgery or antibiotics and prolonged hospital stay}, or ostomy, and complications of anaesthesia, nellie aspiration). The patient was take to the procedure room and placed in a supine position. Monitors were applied and a time out was done. The patients name, date of , procedure type, allergies to medications and metal in their body was reviewed. A bite block was placed and the patient was sedated. Once sedated and comfortable an Olympus gastroscope (see RN notes for scope #) was advanced through the oropharynx which was grossly normal, and passed into the esophagus. The proximal and mid-esophagus were normal. The distal esophagus does not show any: dilation/strictures/varices/erosions or ulcers/bleeding noted. The scope was advanced into the stomach and through the pylorus into the proximal jejunum. The duodenum was noted to be normal. Biopsies were done of the duodenal bulb.. The scope was retracted back into the stomach and biopsies were taken of the antrum. There were no gastritis/gastropathy/ ulcers/masses noted. The scope was retroflexed. The cardia and fundus were noted to be normal. There is no hiatal hernia noted. The scope was retracted back into the esophagus and biopsies were done of the GE junction (in all 4 quadrants) and distal esophagus (2cm above the GE junction) to rule out Caballero's. All specimens are retrieved and no bleeding was noted. The Z line was regular. The GE junction was at 38 cm. The scope was removed and the patient was woken up and taken back to [facility] in stable condition.
--- NOTE | 2024-06-27 12:32 | PDOC.DSDIS_ITS ---
Date of service: 06/28/24 Discharge Plan Disposition Patient Disposition: Home Condition: Good Discharge Details Reason For Visit: EGD Attending Provider: Nicky Garcia Primary Care Provider: Evy Escalona Home Meds and New Rx's Prescriptions: No Action pantoprazole [Protonix] 40 mg tablet,delayed release (DR/EC) 40 mg PO DAILY Qty: 90 4RF lisinopril 20 mg tablet 20 mg PO DAILY albuterol sulfate [ProAir HFA] 90 mcg/actuation HFA aerosol inhaler 2 puff inhalation Q6H PRN montelukast 10 mg tablet 10 mg PO DAILY PRN fluticasone propionate [Flonase Allergy Relief] 50 mcg/actuation spray,suspension 1 spray intranasal BID Rx Instructions: administer into each nostril magnesium oxide 400 mg magnesium tablet 400 mg PO DAILY vitamin B complex Capsule 1 cap PO DAILY prochlorperazine maleate [Compazine] 5 mg tablet 5 mg PO QID PRN (Reason: nausea and vomiting) Qty: 7 0RF Dulera 100-5 mcg/actuation HFA aerosol inhaler 2 puff IH Q12H Qty: 13 1RF Discharge Instructions Additional Instructions: Post EGD Instruction ?You had anesthesia for your EGD/stomach scope today.? For your safety, please do the following for the next twenty-four (24) hours: Do Not operate a motor vehicle (car, truck, motorcycle, etc.) Do Not drink alcoholic beverages or use any recreational drugs for the first 24 hours or while taking pain medications. The medications in your body may have a reaction that can be dangerous. Do Not make any important decisions or sign any important papers You have just had a gastroscopy (EGD) or upper GI tract examination. It is important for your smooth recovery that you carefully follow the recommendations below. Do not hesitate to call if any questions should arise about your anesthesia, condition, or care. -Symptoms you may experience during the next 24 hours: ?1. Mild abdominal pain or excessive gas or a bloated feeling which improves with rest, liquids, eating? slightly, and walking as tolerated. 2. Drowsiness and/or forgetfulness because of the medications you were given. 3. A sore throat which you can treat with throat lozenges or by gargling with salt water 4-5 times a day. 4. Redness at the site of your IV which you can treat with warm compresses. SPECIAL INSTRUCTIONS: 1. You may resume your previous diet in one hour. We recommend a light meal to start, then progress as tolerated. 2. Restart regular medications in one hour. 3. No aspirin or non-steroidal containing medication for 24 hrs. 4. No lifting over 20 pounds or strenuous activity for the first 24 hours after your procedure. After 24 hours there are no restrictions on your activity, but you may feel fatigued for a few days. -Findings: Normal by visualization. We will need to wait for the biopsy results. -Medications: Continue current regimen of medicine -Continue to follow lifestyle modifications: No alcohol, tobacco products, Aspirin or NSAID's (ibuprofen, Motrin, Naprosyn, aleve, etc).? Try to limit/avoid:? soda pop/any carbonated beverages, caffeine (including tea & chocolate), and acidic foods, (tomatoes, citrus, onions, peppermints) spicy or fried/fatty foods. Do not lie down for 30 minutes after eating, and do not eat 2 hours prior to bedtime. Avoid wearing tight fitting clothing/ belts. Follow up: -My office will send a letter with the results of your biopsy?s in 2-3wks time. Call the office at [phone] (Office) or [phone] (Hospital), or go to the ER right away if you notice any of the followin. Vomiting blood and /or ?coffee ground? material. ?2. Worsening of abdominal pain or cramping. ?3. Trouble with breathing, cough, and/or fever (temperature above 101.5 F). 4. Increasing pain with swallowing. ?5. Chest pain. 6. Any new symptoms. 7. 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 Patient has minimal sore throat.? They have been able to tolerate liquids.? They do not have any nausea vomiting.? They are not having any chest pain or shortness of breath.? They have been able to pass gas and are not having any abdominal pain or distention.? They have not vomited any blood.? The vital signs have been stable-see nursing notes. We discussed findings on their endoscopy. We reviewed the importance of lifestyle modification-see discharge instructions We reviewed any new medications that the patient may be prescribed-see discharge instructions Patient will either be sent a letter with the biopsy results or follow-up in the office-see discharge instructions. Patient was given explicit instructions to follow-up regarding post endoscopy- refer to discharge Patient verbalized understanding and discharged in stable and satisfactory condition.? See nursing notes.
[2024-06-28 06:16] VITALS: BP 128/90; PULSE 66; RESP 18; TEMP 36.2; O2SAT 100
[2024-06-28] MEDS: Lactated Ringers 1,000 ML 80 ML IV (06:46)
--- NOTE | 2024-06-28 07:08 | W.ANESPRE ---
General Info Date of Service Date Performed: 06/28/24 Height: 5 ft 3 in Weight: 59.8 kg Body Mass Index (BMI): 23.3 Surgical Procedure: Operation Date: 06/28/24 07:35 Proposed Procedure Side Surgeon p Gastroscopy Nicky Garcia, DO Meds Allergies and Home Medications Allergies Allergy/AdvReac Type Severity Reaction Status Date / Time No Known Allergies Allergy Verified 06/28/24 06:29 Home Medication ?Medication ?Instructions ?Recorded mometasone-formoterol HFA 100 2 puff inhalation Q12H #13 grams 05/28/19 mcg-5 mcg/actuation aerosol inhaler (Dulera) albuterol sulfate 90 mcg/actuation 2 puff inhalation Q6H PRN 08/06/22 aerosol inhaler (ProAir HFA) fluticasone propionate 50 1 spray intranasal BID 08/06/22 mcg/actuation nasal spray,suspension (Flonase Allergy Relief) lisinopril 20 mg tablet 20 mg PO DAILY 08/06/22 montelukast 10 mg tablet 10 mg PO DAILY PRN 08/06/22 magnesium oxide 400 mg PO DAILY 10/13/22 vitamin B complex 1 cap PO DAILY 10/13/22 prochlorperazine maleate 5 mg 5 mg PO QID PRN nausea and 09/21/23 tablet (Compazine) vomiting #7 tabs pantoprazole 40 mg tablet,delayed 40 mg PO DAILY #90 tabs 05/12/24 release (Protonix) Current Visit Medications: Current Medications Generic Name Dose Route Start Last Admin Trade Name Freq PRN Reason Stop Dose Admin Hyoscyamine Sulfate 0.125 mg 06/28/24 00:20 Hyoscyamine 0.125 Mg Sl/Oral/Chew SL 07/28/24 00:19 DIRECTED PRN Ringer's Solution 1,000 mls @ 80 mls/hr 06/28/24 06:15 06/28/24 06:46 IV 07/28/24 06:14 80 mls/hr INFUSION MIGEL Administration IV Miscellaneous Supplies 1 each 06/28/24 06:00 Iv Access IV 06/28/24 23:59 DIRECTED MIGEL Ondansetron HCl 4 mg 06/28/24 00:20 Ondansetron 4 Mg/2 Ml Vial IVP 07/28/24 00:19 Q4H PRN PRN Nausea / Vomiting Sodium Chloride 0 ml 06/28/24 06:00 Normal Saline Flush 10 Ml Syr IV 06/28/24 23:59 PRN PRN Sodium Chloride 0 ml 06/28/24 06:00 Normal Saline 10 Ml Vial IJ 06/28/24 23:59 DIRECTED PRN Sterile Water 0 ml 06/28/24 06:00 Water,Injection,Sterile 10 Ml Vial IJ 06/28/24 23:59 DIRECTED PRN PFSH Active Problems Active Problems: Problem Status Onset Code Right shoulder pain Acute M25.511 Scapular dyskinesis Acute G25.89 Family history of colon cancer Acute Z80.0 Intermittent asthma with allergic rhinitis Acute J45.20 Bronchopneumonia Acute J18.0 Churg-Janna syndrome with lung involvement Acute M30.1 GERD (gastroesophageal reflux disease) Chronic K21.9 Medical History Medical History Esophageal foreign body Tubular adenoma (~08/2023) Intermittent asthma Chronic sinusitis Eosinophilic esophagitis Churg-Janna syndrome Exposure to influenza Chest wall pain Radiculopathy affecting upper extremity H/O macrocytosis Hypomagnesemia Rash, skin Eczema Hypertension Hyperlipidemia Surgical History Surgical History History of colonoscopy (~08/2023) path sent S/P spinal surgery C6-7 FOCAL History of esophagogastroduodenoscopy (EGD) (~04/2019) Tobacco Smoking/Tobacco Use Status: Never Alcohol Alcohol Intake: current Alcohol intake frequency: a few times a week Substance Use Substance use: Never Substance use type: does not use Vital Signs and Lab Results Vital Signs Most Recent Vital Signs in EMR: Most Recent Vital Signs Temp Pulse Resp BP Pulse Ox 36.2 C L 66 18 128/90 100 06/28/24 06:16 06/28/24 06:16 06/28/24 06:16 06/28/24 06:16 06/28/24 06:16 Point of Care Results Point of Care Results: POC- Test(urine) Negative 06/28/24 06:29 Lab Results Blood Type / Crossmatch: No Data to Display Complete Blood Count: No Data to Display Complete Metabolic Panel: No Data to Display Liver Function Panel: No Data to Display Coagulation Panel: No Data to Display Cardiac Panel: No Data to Display Arterial Blood Gas: No Data to Display Venous Blood Gas: No Data to Display Pancreas Panel: No Data to Display Thyroid Panel: No Data to Display Infectious Disease: No Data to Display Blood Cultures: No Data to Display Toxicology Panel: No Data to Display Panel: No Data to Display Imaging and Studies Imaging and Studies Study information below may be from another EMR and interpreted by another provider. Please see original notes in EMR for more complete details. EKG Summary: 05/10/22: Exam: Resting ECG Reason for Exam: shortness of breath Patient Location: E HR:99 bpm ECG Measurements Heart Rate 99 AXIS DC 141 P 95 QRSd 92 QRS 37 QT 339 T27 QTc 435 Conclusion Sinus rhythm...normal P axis, V-rate 60- 99 I have reviewed and I agree with the emergency room physician's ECG interpretation. Anesthesia Assessment and Plan Anesthesia History Personal History: No History of Anesthesia Complications Family History: No Family History of Anesthesia Complications Exercise Tolerance Exercise Tolerance: Metabolic Equivalents>4 Pertinent Negatives Pertinent Negatives: No Major Cardiovascular Symptoms or Complaints and No Major Pulmonary Symptoms or Complaints Cardiac & Pulmonary Exam Cardiac Exam: Normal S1/S2 Heart Sounds Pulmonary Exam: Clear Bilateral Breath Sounds Implantable Cardiac Device Does patient have a Pacemaker or an ICD?: No Airway Exam Known Difficult Airway: No Mallampati Class: 1 Mouth Opening: Normal (> 3cm) Thyromental Distance: Greater than 3 cm Neck Range of Motion: Full ROM Neck Circumference: Normal Teeth Condition: Normal Dentition ASA Classification ASA Score: ASA 2 Emergency Case?: No NPO Status NPO Status: NPO Clears >2 hours, Solids >8 hours Status Status: Negative HCG Anesthesia Plan Resuscitation Status: Full Code Anesthesia Technique: General Anesthesia Airway Planned: Natural Airway Monitors Used: Standard Monitors
[2024-06-28 07:11] VITALS: BMI 23.3
--- NOTE | 2024-06-28 07:52 | STOM_PTH ---
PATIENT: Aleyda Madera LOC: [facility] U#:[id number] AGE/SX: 44/F ROOM: RE06/28/[address]: Nicky Garcia : 1980 BED: DIS: 06/28/2024 SPEC #: [id number] RECD: 06/28/24 11:39 STATUS: VANNA RE #: [id number] JCARLOS: 06/28/24 07:[address]: Nicky Garcia DEPT: Surgical Specimen RECD BY: Susu Aguayo ENTERED: 06/28/24 11:44 SP TYPE: STOMACH OTHR DR: Evy Escalona Tissues: 1 - BIOPSY BOWEL 2 - STOMACH BIOPSY 3 - STOMACH BIOPSY 4 - ESOPHAGUS BIOPSY 5 - ESOPHAGUS BIOPSY Procedures: GROSS AND MICRO LEVEL 4 Comments: [id number]
[2024-06-28 08:10] VITALS: BP 114/86; PULSE 96; RESP 19; TEMP 36.4; O2SAT 97
[2024-06-28 08:40] VITALS: BP 122/83; PULSE 66; RESP 16; TEMP 36.3; O2SAT 100
--- NOTE | 2024-06-28 09:01 | W.ANESPOSTOP ---
Postoperative Evaluation Date, Time and Location Date Performed: 06/28/24 Time Performed: 09:00 Patient Location: Day Surgery Unit Vital Signs Most Recent Imported Vital Signs: Most Recent Vital Signs Temp Pulse Resp BP Pulse Ox 36.3 C L 66 16 122/83 100 06/28/24 08:40 06/28/24 08:40 06/28/24 08:40 06/28/24 08:40 06/28/24 08:40 Pain Score Most Recent Pain Score: Most Recent Pain Score Pain Level 0 06/28/24 08:40 Assessment Mental Status: Awake (Alert & Oriented to Patient Baseline) Airway and Respiratory Function: Patent airway with normal (patient baseline) respiratory exam Cardiovascular Function: Hemodynamically Stable Hydration Status: Adequately Hydrated Nausea & Vomiting: No Nausea or Vomiting Pain: Pt. Denies Any Pain Peripheral Nerve Block: Patient did not receive a nerve block
== END 2024-06-28 09:01 | disposition home or self-care (01) ==
LOC: SUR 06:13
PROVIDERS: PCP Nurse Practitioner Family; Visit Provider Surgery
PROC: 0DJ68ZZ Inspection of Stomach, Via Natural or Artificial Opening Endoscopic (ICD-10-PCS; CPT 43235; principal; 2024-06-28 07:30)
DX: K21.9 Gastro-esophageal reflux disease without esophagitis (principal); K20.0 Eosinophilic esophagitis; M30.1 Polyarteritis with lung involvement [Churg-Strauss]; K22.89 Other specified disease of esophagus
CPT/HCPCS: 43239; 81025; 88305; J2704

== ENCOUNTER 2024-09-16 00:22 | Outpatient (CLI) | payer MEDICAID, SELFPAY ==
[2024-09-16 13:00] LABS: Abs Immature Grans 0.03 10^3/uL (0.0-0.06); Absolute Basophil Count 0.03 10^3/uL (0.0-0.2); Absolute Eosinophil Count 0.25 10^3/uL (0.0-0.7); Absolute Lymphocyte Count 2.25 10^3/uL (1.2-3.4); Absolute Monocyte Count 0.87 10^3/uL (0.1-0.8); Absolute Neutrophil Count 5.51 10^3/uL (1.2-6.7); Basophils % 0.3 %; Eosinophils % 2.8 %; HCT 38.1 % (36.0-46.0); HGB 12.6 g/dL (11.2-15.7); Immature Grans % 0.3 %; Lymphocytes % 25.2 %; MCH 30.1 pg (27.0-33.0); MCHC 33.1 % (32.0-36.0); MCV 91 fL (80-95); Monocytes % 9.7 %; Neutrophils % 61.7 %; Platelet Count 268 10^3/uL (130-400); RBC 4.19 10^6/uL (3.93-5.22); RDW 12.9 % (11.7-14.6); RDW-SD 43.7 fL; WBC 8.94 10^3/uL (4.4-10.8)
[2024-09-16 14:12] LABS: ALT 22 U/L (14-59); AST 11 U/L (15-37); Alkaline Phosphatase 62 U/L (46-116); Anion Gap 7.8 mmol/L (3-11); BUN 15 mg/dL (7-18); Bilirubin, Total 0.4 mg/dL (0.2-1.0); CO2 26.2 mmol/L (21.0-32.0); CREATININE 0.8 mg/dL (0.55-1.02); Calcium 9.2 mg/dL (8.5-10.1); Chloride 104 mmol/L (98-107); Estimated GFR 92.54 (mL/min/1.73m2); Glucose 80 mg/dL (74-106); Magnesium 1.8 mg/dL (1.8-2.4); Potassium 3.7 mmol/L (3.5-5.1); Sodium 138 mmol/L (136-145); TSH 1.42 uIU/mL (0.36-3.74); Total Protein 7.1 g/dL (6.4-8.2)
== END 2024-09-16 00:23 | disposition home or self-care (01) ==
LOC: LBO 00:22
PROVIDERS: PCP Nurse Practitioner Family; Visit Provider Nurse Practitioner Family
DX: M30.1 Polyarteritis with lung involvement [Churg-Strauss] (principal); I10 Essential (primary) hypertension; E04.1 Nontoxic single thyroid nodule
CPT/HCPCS: 36415; 80053; 83735; 84439; 84443; 84481; 85025

== ENCOUNTER 2025-05-02 10:22 | Outpatient (REF) | payer MEDICAID, SELFPAY ==
[2025-05-02 15:30] LABS: Abs Immature Grans 0.04 10^3/uL (0.0-0.06); HCT 39.7 % (36.0-46.0); HGB 13.4 g/dL (11.2-15.7); Immature Grans % 0.4 %; MCH 31.4 pg (27.0-33.0); MCHC 33.8 % (32.0-36.0); MCV 93 fL (80-95); MPV 9.0 fL (8.0-11.0); Platelet Count 231 10^3/uL (130-400); RBC 4.27 10^6/uL (3.93-5.22); RDW 12.5 % (11.7-14.6); RDW-SD 43.2 fL; WBC 11.23 10^3/uL (4.4-10.8)
[2025-05-02 16:12] LABS: ALT 23 U/L (14-59); AST 26 U/L (15-37); Albumin 4.1 g/dL (3.4-5.0); Alkaline Phosphatase 57 U/L (46-116); Anion Gap 10.8 mmol/L (3-11); BUN 8 mg/dL (7-18); Bilirubin, Total 1.1 mg/dL (0.2-1.0); CO2 25.2 mmol/L (21.0-32.0); Calcium 8.7 mg/dL (8.5-10.1); Chloride 104 mmol/L (98-107); Cholesterol 221 mg/dL (<200); Folate 15.3 ng/mL (8.6-20.0); Glucose 87 mg/dL (74-106); HDL Cholesterol 56 mg/dL (>or=50); Potassium 3.6 mmol/L (3.5-5.1); Sodium 140 mmol/L (136-145); Total Protein 7.1 g/dL (6.4-8.2); Vitamin B12 592 pg/mL (193-986)
[2025-05-02 22:47] LABS: CRP, High Sensitivity 0.36 mg/L (See Note)
== END 2025-05-02 10:23 | disposition home or self-care (01) ==
LOC: NCHCN 10:22
PROVIDERS: PCP Nurse Practitioner Family; Visit Provider Nurse Practitioner Family
DX: M30.1 Polyarteritis with lung involvement [Churg-Strauss] (principal); D75.89 Other specified diseases of blood and blood-forming organs; E78.5 Hyperlipidemia, unspecified; I10 Essential (primary) hypertension
CPT/HCPCS: 80053; 80061; 86141; 82607; 82746; 85025

== ENCOUNTER → 2025-06-06 00:31 | Outpatient (CLI) | payer MEDICAID, SELFPAY ==
--- NOTE | 2025-06-06 | DI.MAMMO_ITS ---
Exam(s) MAMMO SCREENING EXAM: MAMMO SCREENING CLINICAL HISTORY: SCREENING, Z12.31 TECHNIQUE: Mammograms were interpreted according to the usual protocol including computer analysis with CAD system, tomosynthesis and C-view imaging. COMPARISON: 2023 FINDINGS: The breasts are composed of scattered fibroglandular densities, Breast Density category B. No suspicious masses or suspicious microcalcifications are seen. No skin thickening or abnormal axillary lymph nodes are seen. There has been no significant change from prior exams. IMPRESSION: BI-RADS Category 1, Negative mammogram Yearly screening mammography is recommended. Breast Density - Category B - There are scattered areas of fibroglandular density. Breast density Category C or D implies that the patient has dense breast tissue. Dense breast tissue can make it harder to find cancer on a mammogram. Dense breast tissue is also associated with an increased risk of breast cancer. This information about the result of the mammogram report was provided to the patient to raise their awareness. Use this report when you speak with the patient about their risks for breast cancer, which includes their family history. At that time, you may recommend additional screening tests (Ultrasound or MRI) as these tests may add significant information. A negative radiographic report should not delay biopsy if a dominant or clinically suspicious mass is present. Up to ten percent of cancers are not identified on mammography. A negative report may reinforce clinical impression. Adenosis and dense breasts may obscure an underlying neoplasm. False positive reports average 6 to 10%. Patient will receive a letter notifying them of these results.
--- NOTE | 2025-06-06 | DI.US_ITS ---
Exam(s) US THYROID EXAM: US THYROID CLINICAL HISTORY: NON TOXIC UNINODULAR GOITER, E04.1. TECHNIQUE: Ultrasound thyroid performed using standard protocol. COMPARISON: US US THYROID from 01/06/2023 FINDINGS: ISTHMUS: 1.4 mm RIGHT LOBE: Size: 4.4 x 1.0 x 1.1 cm Echogenicity: Normal. Vascularity: Normal. Nodules: None. LEFT LOBE: Size: 4.0 x 0.1 x 1.1 cm Echogenicity: Normal. Vascularity: Normal. Nodules: Lower pole: 6 x 3 x 5 millimeter circumscribed slightly hypoechoic solid nodule with hypoechoic halo. Wider than tall and without echogenic foci. Stable in size from 2022. TR 4. An additional 4 millimeter simple cyst is noted. OTHER FINDINGS: No adenopathy. IMPRESSION: Stable 6 millimeter nodule at the lower pole the lower pole of the left lobe. TR 4. Due to its small size, no further follow-up is recommended. DATA REPOSITORY:
== END ==
LOC: DI 00:31
PROVIDERS: PCP Nurse Practitioner Family; Visit Provider Nurse Practitioner Family
DX: E04.1 Nontoxic single thyroid nodule (principal); Z12.31 Encounter for screening mammogram for malignant neoplasm of breast; R92.8 Other abnormal and inconclusive findings on diagnostic imaging of breast; R92.323 Mammographic fibroglandular density, bilateral breasts
CPT/HCPCS: 77063; 77067; 76536